=== PATIENT | female | born 1945 | race Caucasian/White ===

== ENCOUNTER 2019-05-07 16:41 | Outpatient (CLI) | payer MEDICARE, SELFPAY ==
--- NOTE | ~2019-05-07 | MM_ITS ---
EXAMINATION: MM screening luis f BI w richar HISTORY: Screening mammogram TECHNIQUE: Craniocaudal and mediolateral oblique 3-D tomosynthesis images were obtained and synthetic 2-D images were generated. CAD analysis was submitted and interpreted. COMPARISON: Comparison to multiple prior studies sequentially, with oldest reviewed study dated 09/26. BREAST PARENCHYMAL COMPOSITION: There are scattered areas of fibroglandular density. FINDINGS: There is no evidence of suspicious mass, calcification, or architectural distortion to sugg est malignancy in either breast. There has been no suspicious interval change. IMPRESSION: 1. No mammographic evidence of malignancy. 2. Recommend routine screening mammography in one year. BI-RADS Category 1: Negative Reviewed, dictated and finalized at location A. OILER
== END 2019-05-07 16:42 | disposition home or self-care (01) ==
LOC: ANHIMG 16:48
PROVIDERS: PCP Nurse Practitioner Family; Visit Provider Nurse Practitioner Family
DX: Z12.31 Encounter for screening mammogram for malignant neoplasm of breast (principal)
CPT/HCPCS: 77063; 77067

== ENCOUNTER 2019-09-03 11:03 | Outpatient (CLI) | payer MEDICARE, OTHER, SELFPAY ==
--- NOTE | ~2019-09-03 | US_ITS ---
EXAMINATION: US venous doppler [facility] DATE: 09/03/2019 11:34 INDICATION: Left lower limb injury TECHNIQUE: Grayscale ultrasound images without and with compression and Doppler ultrasound images of the left lower extremity veins were obtained. COMPARISON: None. FINDINGS: The visualized portions of left common femoral vein, profunda (deep) femoral vein, femoral vein, popl iteal vein, peroneal veins, posterior tibial veins, gastrocnemius vein and greater saphenous vein out flow are patent. IMPRESSION: 1. No deep venous thrombosis in the left lower limb. Reviewed, dictated and finalized at location A.
== END 2019-09-03 11:04 | disposition home or self-care (01) ==
PROVIDERS: PCP Nurse Practitioner Family; Visit Provider Nurse Practitioner Family
DX: S89.92XA Unspecified injury of left lower leg, initial encounter (principal); M79.89 Other specified soft tissue disorders
CPT/HCPCS: 93971

== ENCOUNTER 2020-09-24 09:02 | Outpatient (CLI) | payer MEDICARE, SELFPAY ==
--- NOTE | ~2020-09-24 | MM_ITS ---
EXAMINATION: MM screening [facility] BI w richar HISTORY: Screening mammogram, family history of breast cancer in her sister. TECHNIQUE: Craniocaudal and mediolateral oblique 3-D tomosynthesis images were obtained and synthetic 2-D images were generated. CAD analysis was submitted and interpreted. COMPARISON: 05/07/2019, 04/29/2018, 11/26/2015 BREAST PARENCHYMAL COMPOSITION: There are scattered areas of fibroglandular density. FINDINGS: There is no evidence of suspicious mass, calcification, or architectural distortion to sugg est malignancy in either breast. There has been no suspicious interval change. IMPRESSION: 1. No mammographic evidence of malignancy. 2. Recommend routine screening mammography in one year. BI-RADS Category 1: Negative Reviewed, dictated and finalized at location A.
== END 2020-09-24 09:03 | disposition home or self-care (01) ==
LOC: ANHIMG 09:05
PROVIDERS: PCP Nurse Practitioner Family; Visit Provider Nurse Practitioner Family
DX: Z12.31 Encounter for screening mammogram for malignant neoplasm of breast (principal)
CPT/HCPCS: 77063; 77067

== ENCOUNTER 2021-07-29 09:01 | Outpatient (CLI) | payer MEDICARE, SELFPAY ==
--- NOTE | ~2021-07-29 | DEXA_ITS ---
Bone Density Report Name: ACOSTA HOSKINS Age: 75 Sex: Female Ethnicity: White Date of : 1945 Indication: postmenopausal; screening for osteoporosis; height loss; hysterectomy; Referring Provider: SUNNY, BRANDON Goss Study: Bone densitometry was performed. Exam Date: July 29, 2021 Accession number: [id number] Bone Density: Region BMD T-score Z-score Classification AP Spine(L1, L2, L3) 1.024 0.1 2.5 Normal Femoral Neck (Left) 0.762 -0.8 1.4 Normal Total Hip (Left) 0.794 -1.2 0.7 Osteopenia Femoral Neck (Right) 0.672 -1.6 0.6 Osteopenia Total Hip (Right) 0.787 -1.3 0.6 Osteopenia Total Hip Mean 0.790 -1.3 0.7 Osteopenia World Health Organization criteria for BMD impression classify patients as: Normal (T-score at or above -1.0), Osteopenia (T-score between -1.0 and -2.5), or Osteoporosis (T-score at or below -2.5). 10-year Fracture Risk(1): Major Osteoporotic Fracture 12% Hip Fracture 2.5% Reported Risk Factors: [place] (), Neck BMD=0.672, BMI=29.5 (1) FRAX(R) Version 3.08. Fracture probability calculated for an untreated patient. Fracture probability may be lower if the patient has received treatment. Previous Exams: Region Exam Age BMD T-score BMD Change BMD Change Date g/cm2 vs Baseline vs Previous AP Spine (L1-L3) 07/29/2021 75 1.024 0.1 -0.022 (-2.1%) -0.022 (-2.1%) 04/19/2018 72 1.046 0.3 Total Hip(Left) 07/29/2021 75 0.794 -1.2 -0.061 (-7.2%) -0.061 (-7.2%) 04/19/2018 72 0.855 -0.7 Total Hip(Right) 07/29/2021 75 0.787 -1.3 -0.053 (-6.3%) -0.053 (-6.3%) 04/19/2018 72 0.840 -0.8 *Denotes significance at 95% confidence level, LSC for AP Spine = 0.022 g/cm2, LSC for Total Hip = 0.027 g/cm2 Clinical Information Provided by Patient: Has used the following medications: Vitamin D, Calcium Has the following medical conditions: Hysterectomy Patient maximum height was 62 Menopause Age: 49 Drinks caffeinated beverages Onset of menses at age 11 Number of children 2 Impression: The patient has low bone mass, based on the Right Femoral Neck T-score. The patient has an estimated ten-year risk of hip fracture of 2.5% and an estimated ten-year risk of major fracture of 12%, based on the WHO FRAX algorithm. The BMD for the Total Hip(Left) decreased, changing by -7.2% since the last DXA exam. The BMD for the Total Hip(Right) decreased, changing by -6.3% since the last DXA exam. Patito
== END 2021-07-29 09:02 | disposition home or self-care (01) ==
LOC: ANHIMG 09:03
PROVIDERS: PCP Nurse Practitioner Family; Visit Provider Nurse Practitioner Family
DX: Z78.0 Asymptomatic menopausal state (principal); M85.851 Other specified disorders of bone density and structure, right thigh; M85.852 Other specified disorders of bone density and structure, left thigh
CPT/HCPCS: 77080

== ENCOUNTER 2021-11-18 08:18 | Outpatient (CLI) | payer MEDICARE, SELFPAY ==
--- NOTE | ~2021-11-18 | XR_ITS ---
EXAMINATION: XR hip LT 2V w AP pelvis INDICATION: Left hip pain TECHNIQUE: AP view the pelvis and two views of the left hip are obtained. COMPARISON: None available FINDINGS: There is advanced osteoarthritis of the left hip and mild osteoarthritis of the right hip. There is no fracture. Phleboliths are noted in the pelvis. IMPRESSION: 1. Advanced osteoarthritis of the left hip. Reviewed, dictated and finalized at location B.
--- NOTE | ~2021-11-18 | MM_ITS ---
EXAMINATION: MM screening luis f BI w richar HISTORY: Screening mammogram TECHNIQUE: Craniocaudal and mediolateral oblique 3-D tomosynthesis images were obtained and synthetic 2-D images were generated. CAD analysis was submitted and interpreted. COMPARISON: 09/24/2020, 05/07/2019, 04/19/2018 bilateral screening mammogram examinations BREAST PARENCHYMAL COMPOSITION: There are scattered areas of fibroglandular density. FINDINGS: There is no evidence of suspicious mass, calcification, or architectural distortion to sugg est malignancy in either breast. There has been no suspicious interval change. IMPRESSION: 1. No mammographic evidence of malignancy. 2. Recommend routine screening mammography in one year. BI-RADS Category 1: Negative Reviewed, dictated and finalized at location A.
== END 2021-11-18 08:19 | disposition home or self-care (01) ==
PROVIDERS: PCP Nurse Practitioner Family; Visit Provider Nurse Practitioner Family
DX: Z12.31 Encounter for screening mammogram for malignant neoplasm of breast (principal); M16.12 Unilateral primary osteoarthritis, left hip
CPT/HCPCS: 73502; 77063; 77067

== ENCOUNTER 2022-03-02 09:37 | Outpatient (CLI) | payer MEDICARE, SELFPAY ==
--- NOTE | 2022-03-02 10:37 | ECG_ITS ---
Measurements Intervals [place] Rate: 76 P: 30 SC: 148 QRS: -18 QRSD: 98 T: 30 QT: 363 QTc: 408 Interpretive Statements SINUS RHYTHM WITH OCCASIONAL VENTRICULAR PREMATURE COMPLEXES INFERIOR MYOCARDIAL INFARCTION [40+ ms Q WAVE AND/OR ST/T ABNORMALITY IN II/aVF], PROBABLY OLD ANTEROLATERAL MYOCARDIAL INFARCTION [40+ ms Q WAVE IN I/aVL/V3-V6], PROBABLY OLD ABNORMAL ECG NO PREVIOUS ECG AVAILABLE FOR COMPARISON Electronically Signed On 03-02-2022 13:42:06 [employer] SUPERVIS[employer] by Dread Cheney M.D.
[2022-03-02 11:20] LABS: Basophils Percent Auto 0.6 % (0.2-1.2); Hematocrit 40.2 % (37.0-47.0); Hemoglobin 12.7 g/dL (12.0-15.0); Immature Granulocyte Absolute 0.01 K/mm3 (0.00-0.031); Immature Granulocyte Percent A 0.2 % (0-0.5); Lymphocytes Absolute Auto 1.61 K/mm3 (0.9-3.2); Lymphocytes Percent Auto 31.9 % (18.3-44.2); Mean Corpuscular HGB Conc 31.6 g/dl (32-36); Mean Corpuscular Hemoglobin 29.8 pg (26-34); Mean Corpuscular Volume 94.4 fl (80-100); Mean Platelet Volume 10.5 fl (7.4-10.4); Monocytes Absolute Auto 0.5 K/mm3 (0.1-0.6); Monocytes Percent Auto 9.1 % (2.6-8.5); Neutrophils Absolute Auto 2.9 K/mm3 (1.3-6.7); Neutrophils Percent Auto 58.2 % (45.5-73.1); Platelet Count Result 220 k/mm3 (150-375); Red Blood Count 4.26 M/mm3 (4.2-5.4); Red Cell Distribution Width 13.9 % (11.5-14.5); White Blood Count 5.1 K/mm3 (4.5-10.0)
[2022-03-02 11:24] LABS: Albumin Level 4.2 g/dL (3.5-5.1); Anion Gap 5 mmol/L (8-16); Blood Urea Nitrogen 19 mg/dL (7-17); Calcium 9.1 mg/dL (8.4-10.2); Carbon Dioxide 34 mmol/L (22-30); Chloride 100 mmol/L (98-107); Estimated Glomerular Filt Rate > 60; Glucose 101 mg/dL (65-110); Potassium 3.6 mmol/L (3.4-5.0); Sodium 139 mmol/L (137-145)
[2022-03-02 11:27] LABS: Urine Cotinine NEGATIVE
[2022-03-02 13:18] LABS: Hemoglobin A1C 5.5 % (<5.7)
== END 2022-03-02 09:38 | disposition home or self-care (01) ==
PROVIDERS: PCP Nurse Practitioner Family; Visit Provider Orthopaedic Surgery
DX: Z01.812 Encounter for preprocedural laboratory examination (principal); Z01.810 Encounter for preprocedural cardiovascular examination; M16.12 Unilateral primary osteoarthritis, left hip; R94.31 Abnormal electrocardiogram [ECG] [EKG]
CPT/HCPCS: 80048; 80307; 82040; 83036; 85025; 87081; 87147; 87181; 87186; 93005

== ENCOUNTER 2022-03-20 00:21 | Day surgery (SDC) | payer MEDICARE, SELFPAY ==
[2022-03-02 09:49] VITALS: BMI 29.9
--- NOTE | 2022-03-02 10:17 | PC.NURSE ---
Report to the Outpatient Waiting Room, entrance under the green pavilion located off [facility], at time __0600 on date __03/20/2022____. Planned Procedure Time: _0730 . Time changes happen often and if your time is changed the preop area will call you the afternoon before. - You and your visitor will be asked to self-screen and do not enter if you have any COVID symptoms. - Only one visitor is requested with a max of two and NO children visitors are allowed at this time. - The patient visitor may be requested to leave or wait in car when not with patient due to distancing restrictions. - A mask is optional within the hospital. Patients may have clear liquids (water, carbonated beverages, clear teas, apple juice) until 3 hours prior to surgery with a maximum of 20 ounces. - No food from midnight until time of surgery - Infants may have breast milk until 4 hours before surgery, formula 6 hours prior to surgery. - Children will be allowed to drink immediately following surgery. If applicable, please bring a bottle or sippy cup to assist with drinking. Juice, water, soda, and popsicles are readily available. For infants on formula, please bring formula the day of surgery. Pacifiers are allowed. Take the following medications with a SIP of water the morning of surgery: ____NONE Medications to discontinue per physician ___PT STATES PER DR DE LA CRUZ NAPROXEN HOLD 2 WKS PRE OP. LAST DOSE 03/05/22. ALL VITAMINS AND SUPPLEMENTS 3 DAYS PRE OP LAST DOSE 03/16/22 Please no make-up, nail danish, hairspray, perfume, deodorant, or body powder the day of surgery. No jewelry (including any body piercings) or valuables the day of surgery, leave them at home. Please take a shower or bath the night before, or the morning of, surgery with an antibacterial soap. Wear comfortable, loose fitting clothing. Children are encouraged to wear pajamas. - Jewelry must be removed prior to entering the operating room. Rings and piercings that are not removed may be cut off. - The hospital will not accept responsibility for valuables. - Please leave all valuables, including medications, at home the day of surgery. If you are going home after surgery, a licensed day haul or farm charter bus driver must drive you home. - NO public transportation without another adult if you receive anesthesia. - We recommend that an adult stay with you for 24 hours following discharge. - We also recommend that you do not drive, make important decision, drink alcoholic beverages, or take any drugs that were not prescribed by your health care provider for at least 24 hours after your discharge time. For Pediatric surgeries, we recommend two adults accompany the child home. Follow any additional instructions given to you from your surgeon. If you or anyone in your household have experienced Covid symptoms in the past week, please notify your surgeon or the nurse liaison at the phone number below for possible testing. VERBAL AND WRITTEN instructions given to __PATIENT and asked if any additional questions and then verbalized understanding. Patient advised to call surgeon office or pre surgery nurse liaison [phone] if any additional questions.
[2022-03-02 10:36] VITALS: BP 151/70; PULSE 78; RESP 18; TEMP 37.3; O2SAT 97
--- NOTE | 2022-03-17 08:15 | PM.IMHP ---
H&P: HPI History of Present Illness Date/Time: 03/17/22 08:15 Chief Complaint: DJD left hip Narrative: 76-year-old female patient of Dr. Rg who presents today for a left anterior total hip arthroplasty. Patient has been having symptoms for over a year in the left hip. She has been using a cane for last year due to pain. She has been taking naproxen 500 mg twice daily with minimal improvement of her symptoms. She is having pain in the anterior lateral left hip as well as the groin. X-rays do show patient has severe type 1 osteoarthritis in the hip. Patient feels this point she is ready to proceed with total hip arthroplasty rather continuing nonsurgical treatment Review of Systems Review of Systems: All systems reviewed & are unremarkable except as noted in HPI and below PMFSH Past Medical History Medical History HTN (hypertension) Pes planus of both feet Tonsillectomy planned Traumatic arthritis of right ankle Surgical History Surgical History History of ankle surgery History of breast surgery History of carpal tunnel release Family History Family History Other Diabetes mellitus Family history of alcoholism Family history of arthritis Family history of cardiovascular disease Family history of gout Family history of kidney disease Hypertension Social History Social History Smoking status: Never smoker Additional smoking assessment comments: DENIES ANY FORM OF TOBACCO USE Alcohol intake: current Substance use: unknown Gender identity (if verbalized by the patient): Female Spiritual care concerns: No Meds Home Medications and Allergies Home Medications Medication Instructions Recorded Confirmed Type herbal drugs 1 tablet PO DAILY 12/10/19 03/02/22 History multivitamin 1 tablet PO DAILY 12/10/19 03/02/22 History naproxen sodium 220 mg tablet 500 mg PO Q8H PRN Pain 12/10/19 03/02/22 History (Aleve) acetaminophen 500 mg capsule 500 mg PO Q6H PRN Pain 03/02/22 03/02/22 History cholecalciferol (vitamin D3) 125 125 mcg PO DAILY 03/02/22 03/02/22 History mcg (5,000 unit) tablet cokzmuxoszu-qbj-ngrrqolac-vitC 2 cap PO DAILY 03/02/22 03/02/22 History capsule (Glucosamine Complex-MSM capsule) milk thistle 200 mg capsule 200 mg PO DAILY 03/02/22 03/02/22 History pyridoxine (vitamin B6) 50 mg 50 mg PO DAILY 03/02/22 03/02/22 History tablet triamterene 37.5 1 cap PO DAILY 03/02/22 03/02/22 History mg-hydrochlorothiazide 25 mg capsule Allergies Allergy/AdvReac Type Severity Reaction Status Date / Time No Known Allergies Allergy Verified 03/02/22 09:50 Exam Narrative: 76-year-old female alert pleasant. She is 4 ft 11 and 152 lb, her BMI is 30.7. Her left hip range of motion is from 0-90 degrees, and 90? this causes her severe lateral hip pain internal rotation is 0 external rotation to 20 both again with anterior lateral hip pain. She has normal abduction strength in the lateral position. Mild tenderness over the greater trochanter. 2+ dorsalis pedis and posterior artery pulse palpable. Normal sensation. No edema in lower extremities. Skin around the hip and groin crease are all normal Resp: Auscultation: clear to auscultation bilaterally Cardio: Rate: regular rate Rhythm: regular rhythm Assessment and Plan Assessment and plan (1) Hip arthritis: Code(s): M16.10 - Unilateral primary osteoarthritis, unspecified hip Status: Acute Plan 76-year-old female who has severe osteoarthritis of left hip with significant symptoms on a daily basis. Again patient feels she is ready to proceed with total arthroplasty. Surgical procedure as well as the risks and complications were discussed in detail and all questions are answered an
--- NOTE | 2022-03-17 12:10 | WPDANESEPPF ---
Anes - Initial Pre Proc Eval Procedure: Operation Date: 03/20/22 07:30 Proposed Procedures p Left Total Hip Arthroplasty Anterior Approach - Osmin Whitfield MD Date/Time: 03/17/22 12:10 Surgeon: Osmin Whitfield MD Pre Op Diagnosis: oa left hip Patient Data Age: 76 Gender: F Height: 1.52 m Weight: 69.6 kg Last Vital Signs Temp 99.1 F 03/02/22 10:36 Pulse 78 03/02/22 10:36 Resp 18 03/02/22 10:36 BP 151/70 H 03/02/22 10:36 Pulse Ox 97 03/02/22 10:36 O2 Del Method Room Air 03/02/22 10:36 Allergies Allergy/AdvReac Type Severity Reaction Status Date / Time No Known Allergies Allergy Verified 03/20/22 06:38 Home Medications Medication Instructions Recorded Confirmed Type herbal drugs 1 tablet PO DAILY 12/10/19 03/20/22 History multivitamin 1 tablet PO DAILY 12/10/19 03/20/22 History naproxen sodium 220 mg tablet 500 mg PO Q8H PRN Pain 12/10/19 03/20/22 History (Aleve) acetaminophen 500 mg capsule 500 mg PO Q6H PRN Pain 03/02/22 03/20/22 History cholecalciferol (vitamin D3) 125 125 mcg PO DAILY 03/02/22 03/20/22 History mcg (5,000 unit) tablet idusintqntj-qsj-rfxwlidyb-vitC 2 cap PO DAILY 03/02/22 03/20/22 History capsule (Glucosamine Complex-MSM capsule) milk thistle 200 mg capsule 200 mg PO DAILY 03/02/22 03/20/22 History pyridoxine (vitamin B6) 50 mg 50 mg PO DAILY 03/02/22 03/20/22 History tablet triamterene 37.5 1 cap PO DAILY 03/02/22 03/20/22 History mg-hydrochlorothiazide 25 mg capsule Patient hx anesthesia problems: none Family hx anesthesia problems: none Results Review: All pre-operative results and documents have been reviewed as part of the pre-operative evaluation. [facility] Past Medical History Medical History HTN (hypertension) Pes planus of both feet Tonsillectomy planned Traumatic arthritis of right ankle Surgical History Surgical History History of ankle surgery History of breast surgery History of carpal tunnel release Family History Family History Other Diabetes mellitus Family history of alcoholism Family history of arthritis Family history of cardiovascular disease Family history of gout Family history of kidney disease Hypertension Social History Social History Smoking status: Never smoker Additional smoking assessment comments: DENIES ANY FORM OF TOBACCO USE Alcohol intake: current Substance use: unknown Living arrangements: alone Gender identity (if verbalized by the patient): Female Spiritual care concerns: No Anes - Eval Final PreProcedure Day of Procedure 03/17/22 12:10 Patient weight: normal Heart: regular rate and rhythm Lungs: clear to auscultation Airway: Mallampati scale class II Neurological: alert and oriented Last oral intake: >/= 8 hours ASA classification: II Emergent: no Anesthetic plan: proceed Anesthesia type and monitoring: general ETT and standard monitoring Results Review: All pre-operative results and documents have been reviewed as part of the pre-operative evaluation. Informed Consent: The patient's anesthetic plan and its attendant risks and benefits were discussed with the patient/family/POA. Questions were solicited and answers provided to the satisfaction of the patient/family/POA.
[2022-03-20] VITALS (15 sets, daily range): BP systolic 95–154; BP diastolic 39–80; PULSE 70–101; RESP 12–20; TEMP 36.6–37.2; O2SAT 95–100; BMI 29.4
--- NOTE | ~2022-03-20 | XR_ITS ---
EXAMINATION: XR hip LT 1V w AP pelvis DATE: 03/20/2022 11:29 INDICATION: Left total hip arthroplasty. Postop. TECHNIQUE: An anteroposterior view of the pelvis and single view of left hip were obtained. COMPARISON: Pelvis and left hip radiographs 11/18/2021 FINDINGS: There is a total left hip arthroplasty in near-anatomic alignment. There is mild right hip osteoarthritis. No fracture. There is gas in the soft tissues around the left hip, consistent with re cent surgery. A surgical drain is noted. IMPRESSION: 1. Total left hip arthroplasty in near-anatomic alignment. 2. Mild right hip osteoarthritis. Reviewed, dictated and finalized at location A. S VICE PRESIDENT
--- NOTE | ~2022-03-20 | XR_ITS ---
EXAMINATION: XR surgery orthopedic DATE: 03/20/2022 11:08 INDICATION: Anterior approach left total hip arthroplasty TECHNIQUE: 2 fluoroscopic images of the left hip were obtained during procedure performed by Dr. Terry veloz. Radiologist was not present for the imaging or procedure. The amount of fluoroscopy time used du ring this procedure was 0.9 minutes. COMPARISON: 11/18/2021 FINDINGS: Interval placement of a left total hip arthroplasty which appears in near anatomic alignment on the f rontal projection. No fractures identified. Expected postoperative soft tissue gas at the operative b ed. Multiple phleboliths in the pelvis. A lead versus catheter projects of the left hemipelvis. IMPRESSION: Fluoroscopy utilized during placement of a left total hip arthroplasty which appears in near-anatomic alignment on AP projection. See procedure note for further detail. Reviewed, dictated and finalized at location A. TIC COUNSELOR IMPRESSION: Fluoroscopy utilized during placement of a left total hip arthroplasty which ap pears in near-anatomic alignment on AP projection. See procedure note for furth er detail.
[2022-03-20] MEDS: LACTATED RINGERS 1,000 ML 30 ML IV CONT ×2 (06:46→11:31)
[2022-03-20] MEDS: TRANEXAMIC ACID 1,000MG/ISO100 1,000 MG/100 ML BAG 200 MG IVPB (06:47)
[2022-03-20] MEDS: ACETAMINOPHEN 500 MG TABLET 1000 MG PO ×3 (06:47→17:04)
--- NOTE | 2022-03-20 07:23 | WPDHPUPDATE1 ---
History and Physical Update Update Date/Time: 03/20/22 07:23 History and Physical has been reviewed, including an updated exam of the patient. There are NO changes in the patient's condition. Risks, benefits, and alternatives have been discussed and questions answered. Patient agrees to proceed with procedure.
[2022-03-20] MEDS: ceFAZolin 2 GM/D5W 50 ML 2 GM/50 ML BAG IVPB (07:40)
[2022-03-20] MEDS: ceFAZolin SODIUM 1 GM VIAL 3 GM (08:25)
[2022-03-20] MEDS: TRANEXAMIC ACID 1,000 MG/10 ML AMPUL 1000 MG IV PUSH (10:53)
[2022-03-20] MEDS: ceFAZolin SODIUM 1 GM VIAL 2 GM IV PUSH (10:53)
--- NOTE | 2022-03-20 11:16 | W.PM.PROC2 ---
Procedure Note - Detailed Date of Procedure 03/20/22 Pre-op Diagnosis oa left hip Post-op Diagnosis Same Procedure Performed Direct anterior approach left total hip arthroplasty Surgeon Osmin Whitfield MD Continuous Improvement Intern Navya Anesthesia General Description of Procedure Patient was brought to the operating room and general anesthesia was administered. She received 2 g Ancef weight based vancomycin 1 g of tranexamic acid preoperatively. Padding was placed on the feet and boots applied with SCDs applied running during the procedure [facility] and left hip prepped draped usual fashion. A 10 cm longitudinal incision was made starting 3 cm lateral to the ASIS. Dissection was carried down through the subcutaneous fat exposing the fascia over the tensor fascia matt. There was 1 posterior branch of anterior lateral femoral circumflex nerve that traverse the proximal end of the incision to the posterior flap that we preserved during the procedure. Fascia was incised elevated off the anterior 50% of the tensor fascia matt. The lateral femoral circumflex vessels were carefully isolated ligated with suture divided. Retractor was placed anterior medial capsule hip abducted internally rotated gluteus minimus elevated off lateral capsule. Standard inverted T capsulotomy performed and femoral neck osteotomy made according to preoperative templating. The femoral head was removed. It measured 42 mm in diameter. There was circumferential bony eburnation which made the head smaller than in its normal state. The acetabulum was exposed labrum excised. The leg was externally rotated extended and the interval between piriformis and conjoined tendon incised which resulted in a minimal recession of the conjoined tendon. The leg back in horizontal position external rotation traction acetabulum was prepared. We medialized the medial wall with the 40 Reamer and reamed up to 45 mm in the 45 trial fit nicely. We lightly reamed with a 46 and chose the 46 pinnacle cup and tried to seat this fully but I could not get it to seat the last 3 mm which I do not feel was acceptable. Cup was removed and we carefully irrigated the cup and removed any soft tissue debris and we then reamed the acetabulum 1 more time carefully and conservatively with a 46 Reamer and this time we were able to fully seat the acetabular component. An excellent Press-Fit was achieved single screw placed in the ilium. Cup placed at 40? of abduction and anteversion such that the cup was a mm under the anterior rim and about a mm proud of the posterior rim. 28 mm inner diameter liner was placed. With the femoral table hook in place the leg was externally rotated and extended and the proximal femur broached to a size 3 which obtain complete torsional stability. We trialed with the 1.5 had. At this point I felt we had the proper length based on radiographic appearance offset was a little bit diminished. I elected to countersink the broach 2 and half more mm and we trialed with a +5 head and with this we similarly had the same leg lengths offset was 3 mm greater and approximately equal to the other side we had a better Shuck feel. We confirmed that there was complete torsional stability of the broach. We calcar planed and placed the size 3 standard offset Actis stem which seated fully with an excellent fit. We trialed 1 more time with a +5 head was appropriate. The wound was thoroughly irrigated and the trunnion dried and the +5 x 28 mm stainless steel head was impacted onto the trunnion hip reduced stability soft tissue tension were appropriate. Capsule was reapproximated with 2. Vicryl the fascia over the tensor fascia matt repaired with running 1. Vicryl a drain was placed deep in the subcu skin closed to subcutaneous Vicryl and glue. EBL was estimated at 500 cc. Her bones tended to ooze more than average. With the implants in place there was complete hemostasis. She received 250 back a
--- NOTE | 2022-03-20 11:35 | P.OPB_ITS ---
Procedure Note - Brief Procedure Note - Brief Date of procedure: 03/20/22 Pre-op diagnosis: oa left hip Left hip DJD Procedure performed: Left anterior total hip arthroplasty Description of procedure: 76-year-old female underwent left anterior total hip arthroplasty. I was involved in the procedure including positioning patient on OR table, 1st surgical physician assistant to time surgery as well as getting patient recovery. Total time spent was 4 hours Surgeon: NASIM Edmonds
[2022-03-20 13:13] LABS: Hepatitis B Surface Antigen Negative (Negative)
--- NOTE | 2022-03-20 13:23 | ADMGEN ---
This patient, Lulú Olson, was admitted to [facility]. Patient/family oriented to hospital policies and general routines including ID bracelet, bed and alarms, visiting hours, pain management, procedures, bathroom and other care routines, personal items, smoking policy, room service/diet, and visiting hours. Information on how to activate the Rapid Response Team has been discussed. Patient/Family are encouraged to report perceived risks to care and to ask questions if they do not understand what they are told or what they should do.
[2022-03-20 13:30] LABS: HIV 1/2 Ab P24 Ag Result Negative (Negative); Hepatitis C Virus Antibody Negative (Negative)
[2022-03-20] MEDS: SODIUM CHLORIDE 0.9% IV 1,000 ML 125 ML IV CONT (14:13)
[2022-03-20] MEDS: oxyCODONE HCL (*CRX) 5 MG TAB IR PO ×3 (14:16→20:50)
[2022-03-20] MEDS: ONDANSETRON INJ 4 MG/2 ML VIAL IV PUSH ×2 (15:41→20:53)
[2022-03-20] MEDS: SENNA/DOCUSATE SODIUM TABLET 2 TAB PO (16:49)
[2022-03-20] MEDS: FAMOTIDINE 20 MG TABLET PO (20:50)
[2022-03-20] MEDS: SODIUM CHLORIDE 0.9% IV 1,000 ML 999 ML IV CONT (21:00)
[2022-03-21] MEDS: ACETAMINOPHEN 500 MG TABLET 1000 MG PO ×2 (00:15→05:06)
[2022-03-21] MEDS: oxyCODONE HCL (*CRX) 5 MG TAB IR PO ×3 (01:00→08:41)
[2022-03-21 05:12] VITALS: BP 126/48; PULSE 77; RESP 20; TEMP 37.3; O2SAT 100
--- NOTE | 2022-03-21 06:35 | PM.PNORT ---
Subjective Subjective Date/Time Seen: 03/21/22 06:35Postop day 1 patient is alert. Afebrile vital signs are stable. Morning labs and not been completed yet. Drain is still in will be removed this morning. Patient has been on multiple times to the restroom overnight. Pain overall is very well controlled. Neurovascularly she is intact. Will have patient work with therapy this morning then plan on discharging her home later this morning. Objective Data Vital Signs Vital Signs: Vital Signs - 24 hr 03/20/22 06:52 03/20/22 11:31 03/20/22 11:45 Temperature 37.0 C 36.6 C Pulse Rate 71 96 82 Respiratory Rate 18 14 12 Blood Pressure 154/71 H 111/53 L 100/45 L Pulse Oximetry 99 99 99 Oxygen Delivery Room Air Room Air Simple Face Mask Oxygen Flow Rate 8 03/20/22 12:00 03/20/22 12:15 03/20/22 12:30 Temperature Pulse Rate 94 85 101 H Respiratory Rate 14 12 14 Blood Pressure 126/61 137/71 153/78 H Pulse Oximetry 95 100 99 Oxygen Delivery Simple Face Mask Room Air Nasal Cannula Oxygen Flow Rate 8 2 03/20/22 12:45 03/20/22 13:00 03/20/22 13:08 Temperature 36.9 C Pulse Rate 84 79 78 Respiratory Rate 14 14 16 Blood Pressure 144/63 H 142/68 H 140/61 Pulse Oximetry 100 100 100 Oxygen Delivery Nasal Cannula Nasal Cannula Oxygen Flow Rate 2 2 03/20/22 13:23 03/20/22 14:19 03/20/22 14:00 Temperature 36.9 C 36.8 C 36.8 C Pulse Rate 78 81 81 Respiratory Rate 16 16 16 Blood Pressure 140/61 129/57 L 129/57 L Pulse Oximetry 100 100 100 Oxygen Delivery Oxygen Flow Rate 03/20/22 16:30 03/20/22 17:48 03/20/22 19:26 Temperature 36.8 C 36.7 C Pulse Rate 70 80 Respiratory Rate 18 18 Blood Pressure 130/80 95/39 L Pulse Oximetry 97 100 Oxygen Delivery Room Air Oxygen Flow Rate 03/20/22 21:17 03/21/22 05:12 Temperature 37.2 C 37.3 C Pulse Rate 78 77 Respiratory Rate 20 20 Blood Pressure 108/39 L 126/48 L Pulse Oximetry 98 100 Oxygen Delivery Oxygen Flow Rate Intake/Output Intake/Output: Intake & Output 03/18/22 03/19/22 03/20/22 03/21/22 23:59 23:59 23:59 23:59 Intake Total 3900 450 Output Total 45 45 Balance 3855 405 Meds/Results Medications: Active Medications Generic Name Dose Route Start Last Admin Trade Name Freq PRN Reason Stop Dose Admin Acetaminophen 1,000 mg 03/20/22 13:08 03/21/22 05:06 Acetaminophen 500 Mg Tablet PO 1,000 mg Q6HR SATINDER Administration Apixaban 2.5 mg 03/21/22 09:00 Apixaban 2.5 Mg Tablet PO Q12HR SATINDER Celecoxib 100 mg 03/21/22 09:00 Celecoxib 100 Mg Capsule PO DAILY SATINDER Cephalexin HCl 500 mg 03/21/22 18:00 Cephalexin 500 Mg Capsule PO Q6HR SATINDER Famotidine 20 mg 03/20/22 21:00 03/20/22 20:50 Famotidine 20 Mg Tablet PO 20 mg Q12HR SATINDER Administration Vancomycin HCl 1,000 mg in 250 mls @ 250 mls/hr 03/20/22 18:00 03/21/22 06:07 Vancomycin 1,000 Mg/D5w 250 Ml IVPB 03/21/22 06:59 Infused Q12H SATINDER Infusion Cefazolin Sodium 1 gm in 50 mls @ 100 mls/hr 03/20/22 19:00 03/21/22 04:35 Ancef 1 Gm/D5w 50 Ml Pm IVPB 03/21/22 11:29 Infused Q8H SATINDER Infusion Sodium Chloride 1,000 mls @ 125 mls/hr 03/20/22 13:08 03/20/22 22:20 Normal Saline Iv IV CONT Not Given .Q8H SATINDER Morphine Sulfate 2 mg 03/20/22 13:08 Morphine Sulfate (*Crx) 2 Mg/Ml Inj IV PUSH Q3H PRN Pain Rated 7-10 Naloxone HCl 0.1 mg 03/20/22 13:08 Naloxone Hcl 0.4 Mg/Ml Vial IV PUSH Q2M PRN Opiate Reversal Ondansetron HCl 4 mg 03/20/22 13:08 03/20/22 20:53 Ondansetron Inj 4 Mg/2 Ml Vial IV PUSH 4 mg Q4H PRN Administration Nausea And Vomiting Oxycodone HCl 5 mg 03/20/22 13:08 Oxycodone Hcl (*Crx) 5 Mg Tab Ir PO Q4H PRN Pain Rated 4-6 Oxycodone HCl 5 mg 03/20/22 13:08 03/21/22 05:06 Oxycodone Hcl (*Crx) 5 Mg Tab Ir PO 5 mg Q4HR SATINDER Administration Polyethylene Glycol 17 gm 03/21/22 09:00 Polyethylene Glycol 335
--- NOTE | 2022-03-21 06:39 | PM.DS ---
DS: Admitting Diagnosis Discharge Date 03/21 Admitting Diagnosis left hip DJD DS: Discharge Diagnosis Discharge Diagnosis (1) Hip arthritis: Code(s): M16.10 - Unilateral primary osteoarthritis, unspecified hip Status: Acute DS: Summary Hospital Course Hospital Course: 76-year-old female who underwent left anterior total hip arthroplasty on 03/20. Underwent the procedure without complications. Postoperatively she has been afebrile vital signs been stable. Neurovascularly she is intact. Her is dry. She was up multiple times a day of surgery to the restroom. She is on Eliquis for DVT prophylaxis. Pain is controlled with scheduled Tylenol as well as oxycodone 5 mg. She is on 10 day course of Celebrex. She is also on a 2 week course of Keflex due to a positive nasal swab for ARIK. She also go home on Senokot MiraLax. Patient overall has done very well. At the time of dictation morning labs not been completed. Patient was advised any questions or concerns once he goes home she is to call the office otherwise we will see her at her point dates Time Spent with Patient Time attestation: Total time spent providing and/or coordinating discharge services: DS: Data Data Completed and Pending Labs on day of discharge: Labs from last 24 hours 03/20/22 03/20/22 12:18 06:35 Hep Bs Antigen Negative Hepatitis C Ab Screen Negative HIV 1&2 Ab/P24 Ag 4thGn Negative Blood Type O Positive Antibody Screen Negative Discharge Plan Discharge Patient Disposition: Home, Self-Care Discharge Instructions: OSMIN WHITFIELD M.D [facility], [address] [address] POST-OPERATIVE DISCHARGE INSTRUCTIONS ANTERIOR TOTAL HIP ARTHROPLASTY 1. Move toes/feet up and down every hour while awake. 2. Be up walking every hour while awake. 3. Use cane in hand opposite of side of hip surgery or walker as comfort allows. Avoid sitting in a chair unless eating, receiving visitors or using the toilet. 4. When resting, lie on back with leg elevated above heart to minimize swelling. Significant swelling could indicate a blood clot and if this occurs, call the office (or go to the ER) to have a venous ultrasound performed. 5. Wound Care: Keep dry sponge on wound for 2 weeks. Use minimal tape. 6. Follow weight bearing status as instructed. 7. May shower with dressing off. Stand Alone Forms: General Discharge Instructions Follow-up/Referrals: Osmin Whitfield MD [Physician] - Keep Reg. Scheduled Appt. Discharge Medications: New acetaminophen 500 mg Tablet 1,000 mg PO Q6HR Qty: 90 0RF Eliquis 2.5 mg Tablet 2.5 mg PO Q12HR Qty: 70 0RF sennosides-docusate sodium [Senokot-S] 8.6-50 mg Tablet 2 tab-cap PO BID Qty: 60 0RF cephalexin 500 mg Capsule 500 mg PO Q6HR Qty: 56 0RF celecoxib [Celebrex] 100 mg Capsule 100 mg PO DAILY Qty: 10 0RF polyethylene glycol 3350 [Miralax] 17 gram Powder In Packet 17 g PO QAM Qty: 30 0RF oxycodone 5 mg Tablet 5 mg PO Q4HR Qty: 40 0RF Continued multivitamin Tablet 1 tablet PO DAILY herbal drugs Tablet 1 tablet PO DAILY triamterene-hydrochlorothiazid 37.5-25 mg capsule 1 cap PO DAILY pyridoxine (vitamin B6) 50 mg Tablet 50 mg PO DAILY milk thistle 200 mg Capsule 200 mg PO DAILY Rx Instructions: give with meal/snack cholecalciferol (vitamin D3) 125 mcg (5,000 unit) Tablet 125 mcg PO DAILY Discontinued naproxen sodium [Aleve] 220 mg tablet 500 mg PO Q8H PRN (Reason: Pain) Glucosamine Complex-MSM Capsule 2 cap PO DAILY acetaminophen [Tylenol Extra Strength] 500 mg Capsule 500 mg PO Q6H PRN (Reason: Pain) Attending physician on admission: Osmin Whitfield
--- NOTE | 2022-03-21 07:29 | WPDANESPN ---
Anes - Prog Note Post-Op Date/Time: 03/21/22 07:29 Cardiovascular status: normal Respiratory status: normal Airway patency: baseline Mental status: baseline Post-Op hydration status: normal Vital Signs: Last Vital Signs Temp 99.2 F 03/21/22 05:12 Pulse 77 03/21/22 05:12 Resp 20 03/21/22 05:12 BP 126/48 L 03/21/22 05:12 Pulse Ox 100 03/21/22 05:12 O2 Del Method Room Air 03/20/22 16:30 O2 Flow Rate 2 03/20/22 13:00 Pain Score (VAS): 2 I/O: Intake & Output 03/20/22 03/20/22 03/21/22 15:59 23:59 07:59 Intake Total 450 3450 450 Output Total 45 45 Balance 450 3405 405 03/20/22 03/20/22 06:35 12:18 Hep Bs Antigen Negative Hepatitis C Ab Screen Negative HIV 1&2 Ab/P24 Ag 4thGn Negative Antibody Screen Negative Patient Feedback: Patient satisfied with anesthetic care.
--- NOTE | 2022-03-21 08:27 | PCOTNOTE ---
Attempted to see pt for Occupational therapy treatment. Pt is currently eating breakfast and would like to finish it before it goes cold. Pt was educated on the purpose of seeing occupational therapy to ensure LUCILA is maintained during ADLs. Pt reports that she is d/c home today, has ordered a automotive engineering technician for home, and feels comfortable completing LE dressing with long handled equipment and toileting due to education from previous session and frequently using the bathroom during the night with staff. Will attempt at a later time for Occupational therapy session.
[2022-03-21 08:30] VITALS: BP 108/49; PULSE 70; RESP 20; TEMP 37.1; O2SAT 96
[2022-03-21] MEDS: polyethylene glycoL 3350 17 GM POWD.PACK PO (08:36)
[2022-03-21] MEDS: CELECOXIB 100 MG CAPSULE PO (08:37)
[2022-03-21] MEDS: CHOLECALCIFEROL 1,000 UNITS TABLET 5000 UNITS PO (08:38)
[2022-03-21] MEDS: TRIAMTERENE 37.5 MG/HCTZ 25 MG (MAXZIDE) TABLET 1 TAB PO (08:38)
[2022-03-21] MEDS: FAMOTIDINE 20 MG TABLET PO (08:39)
[2022-03-21] MEDS: APIXABAN 2.5 MG TABLET PO (08:39)
[2022-03-21] MEDS: SENNA/DOCUSATE SODIUM TABLET 2 TAB PO (08:40)
[2022-03-21 08:54] LABS: Basophils Percent Auto 0.1 % (0.2-1.2); Hematocrit 33.7 % (37.0-47.0); Hemoglobin 10.6 g/dL (12.0-15.0); Immature Granulocyte Absolute 0.04 K/mm3 (0.00-0.031); Immature Granulocyte Percent A 0.4 % (0-0.5); Lymphocytes Absolute Auto 2.98 K/mm3 (0.9-3.2); Lymphocytes Percent Auto 28.3 % (18.3-44.2); Mean Corpuscular HGB Conc 31.5 g/dl (32-36); Mean Corpuscular Hemoglobin 30.5 pg (26-34); Mean Corpuscular Volume 96.8 fl (80-100); Mean Platelet Volume 10.3 fl (7.4-10.4); Monocytes Absolute Auto 0.9 K/mm3 (0.1-0.6); Monocytes Percent Auto 8.1 % (2.6-8.5); Neutrophils Absolute Auto 6.7 K/mm3 (1.3-6.7); Neutrophils Percent Auto 63.1 % (45.5-73.1); Platelet Count Result 203 k/mm3 (150-375); Red Blood Count 3.48 M/mm3 (4.2-5.4); Red Cell Distribution Width 14.5 % (11.5-14.5); White Blood Count 10.5 K/mm3 (4.5-10.0)
[2022-03-21 09:02] LABS: Anion Gap 2 mmol/L (8-16); Blood Urea Nitrogen 17 mg/dL (7-17); Calcium 8.5 mg/dL (8.4-10.2); Carbon Dioxide 31 mmol/L (22-30); Chloride 102 mmol/L (98-107); Estimated CRCL calculation 44 ml/min; Estimated Glomerular Filt Rate > 60; Glucose 91 mg/dL (65-110); Potassium 3.4 mmol/L (3.4-5.0); Sodium 135 mmol/L (137-145)
== END 2022-03-21 11:05 | disposition home or self-care (01) ==
LOC: ANHSURGERY 11:59 → ANHSUROVER 13:15
PROVIDERS: Physician Assistant Surgical; PCP Nurse Practitioner Family; Visit Provider Orthopaedic Surgery
PROC: (CPT 27130; principal; 2022-03-20 07:30)
DX: M16.12 Unilateral primary osteoarthritis, left hip (principal); I10 Essential (primary) hypertension; Z11.4 Encounter for screening for human immunodeficiency virus [HIV]
CPT/HCPCS: 27130; 36415; 73501; 80048; 80307; 82040; 83036; 85025; 86703; 86803; 86850; 86900; 86901; 87081; 87147; 87181; 87186; 87340; 93005; 97110; 97116; 97161; 97165; 97530; 97535; 99199; A9270; C1776; G0432; J0171; J0690; J1100; J1170; J1885; J2270; J2405; J2704; J2710; J2795; J3010; J3370; J7030; J7120

== ENCOUNTER 2023-09-28 09:40 | Outpatient (CLI) | payer MEDICARE, SELFPAY ==
--- NOTE | ~2023-09-28 | MM_ITS ---
EXAMINATION: MM screening luis f BI w richar HISTORY: Screening TECHNIQUE: Craniocaudal and mediolateral oblique 3-D tomosynthesis images were obtained and synthetic 2-D images were generated. CAD analysis was submitted and interpreted. COMPARISON: Comparison to multiple prior studies sequentially, with oldest reviewed study dated 11/25. BREAST PARENCHYMAL COMPOSITION: Not dense: There are scattered areas of fibroglandular density. FINDINGS: There is no evidence of suspicious mass, calcification, or architectural distortion to sugg est malignancy in either breast. There has been no suspicious interval change. IMPRESSION: 1. No mammographic evidence of malignancy. 2. Recommend routine screening mammography in one year. BI-RADS Category 1: Negative Reviewed, dictated and finalized at location B.
== END 2023-09-28 09:41 | disposition home or self-care (01) ==
LOC: ANHIMG 09:41
PROVIDERS: PCP Family Medicine; Visit Provider Family Medicine
DX: Z12.31 Encounter for screening mammogram for malignant neoplasm of breast (principal)
CPT/HCPCS: 77063; 77067

== ENCOUNTER 2023-10-22 08:38 | Day surgery (SDC) | payer MEDICARE, SELFPAY ==
[2023-09-11 15:10] VITALS: BMI 29.0
[2023-10-05 10:20] VITALS: BMI 27.1
--- NOTE | 2023-10-16 12:47 | PM.HPGS ---
History of Present Illness History of Present Illness Consent: Risks, benefits, and alternatives have been discussed and questions answered. Patient agrees to proceed with procedure. Chief complaint: Family History of Colon Cancer Narrative: Lulú Olson is a 78 year old female who is referred for colon cancer screening. She has a family history of colon cancer. Sister has been diagnosed with colon cancer as has her sister's son who is his 40s. Review of Systems Review of Systems: All systems reviewed & are unremarkable except as noted in HPI and below PMFSH Past Medical History Medical History HTN (hypertension) Pes planus of both feet Tonsillectomy planned Traumatic arthritis of right ankle Surgical History Surgical History History of ankle surgery History of breast surgery History of carpal tunnel release Family History Family History Other Diabetes mellitus Family history of alcoholism Family history of arthritis Family history of cardiovascular disease Family history of gout Family history of kidney disease Hypertension Social History Social History Smoking status: Never smoker Additional smoking assessment comments: DENIES ANY FORM OF TOBACCO USE Alcohol intake: never Substance use: never Substance use type: does not use Lack of Transportation: No Lack of Food: Never True Current Housing: I Have Housing Concerned About Future Housing: No Difficulty Paying Gas/Electric Bills: No Difficulty Paying for Meds: No Currently Unemployed: No Education: Don't Know Difficulty w/ Childcare or Family Care: No Living arrangements: alone Occupation/Education: retired Gender identity (if verbalized by the patient): Female Spiritual care concerns: No Meds Home Medications and Allergies Home Medications Medication Instructions Recorded Confirmed Type multivitamin 1 tablet PO DAILY 12/10/19 10/22/23 History cholecalciferol (vitamin D3) 125 125 mcg PO DAILY 03/02/22 10/22/23 History mcg (5,000 unit) tablet milk thistle 200 mg capsule 200 mg PO DAILY 03/02/22 10/22/23 History pyridoxine (vitamin B6) 50 mg 50 mg PO DAILY 03/02/22 10/22/23 History tablet naproxen 500 mg tablet,delayed 500 mg PO BID 09/07/23 10/22/23 History release triamterene 37.5 1 cap PO DAILY 10/05/23 10/22/23 History mg-hydrochlorothiazide 25 mg capsule Allergies Allergy/AdvReac Type Severity Reaction Status Date / Time No Known Allergies Allergy Verified 10/22/23 09:31 Exam Resp: Auscultation: clear to auscultation bilaterally Cardio: Rate: regular rate Rhythm: regular rhythm GI: GI Palp: Yes Soft to palpation and No Tenderness to palpation present (GI) Assessment and Plan Assessment and plan (1) Family history of colon cancer: Code(s): Z80.0 - Family history of malignant neoplasm of digestive organs Status: Acute Assessment and Plan: Colonoscopy with possible biopsy or polypectomy or cautery or injection of substances.
[2023-10-22 09:30] VITALS: BP 150/72; PULSE 64; RESP 18; TEMP 36.7; O2SAT 100
[2023-10-22] MEDS: LACTATED RINGERS 1,000 ML 150 ML IV CONT (09:46)
--- NOTE | 2023-10-22 10:21 | WPDANESEPPF ---
Anes - Initial Pre Proc Eval Procedure: Operation Date: 10/22/23 10:30 Proposed Procedures p Diagnostic Colonoscopy - Juan Ruiz MD Date/Time: 10/22/23 10:21 Surgeon: Juan Ruiz MD Pre Op Diagnosis: Family History of Colon Cancer Patient Data Age: 78 Gender: F Height: 1.55 m Weight: 65.3 kg Last Vital Signs Temp 36.7 C 10/22/23 09:30 Pulse 64 10/22/23 09:30 Resp 18 10/22/23 09:30 BP 150/72 H 10/22/23 09:30 Pulse Ox 100 10/22/23 09:30 O2 Del Method Room Air 10/22/23 09:30 Allergies Allergy/AdvReac Type Severity Reaction Status Date / Time No Known Allergies Allergy Verified 10/22/23 09:31 Home Medications Medication Instructions Recorded Confirmed Type multivitamin 1 tablet PO DAILY 12/10/19 10/22/23 History cholecalciferol (vitamin D3) 125 125 mcg PO DAILY 03/02/22 10/22/23 History mcg (5,000 unit) tablet milk thistle 200 mg capsule 200 mg PO DAILY 03/02/22 10/22/23 History pyridoxine (vitamin B6) 50 mg 50 mg PO DAILY 03/02/22 10/22/23 History tablet naproxen 500 mg tablet,delayed 500 mg PO BID 09/07/23 10/22/23 History release triamterene 37.5 1 cap PO DAILY 10/05/23 10/22/23 History mg-hydrochlorothiazide 25 mg capsule Patient hx anesthesia problems: none Family hx anesthesia problems: none Results Review: All pre-operative results and documents have been reviewed as part of the pre-operative evaluation. [facility] Past Medical History Medical History HTN (hypertension) Pes planus of both feet Tonsillectomy planned Traumatic arthritis of right ankle Surgical History Surgical History History of ankle surgery History of breast surgery History of carpal tunnel release Family History Family History Other Diabetes mellitus Family history of alcoholism Family history of arthritis Family history of cardiovascular disease Family history of gout Family history of kidney disease Hypertension Social History Social History Smoking status: Never smoker Additional smoking assessment comments: DENIES ANY FORM OF TOBACCO USE Alcohol intake: never Substance use: never Substance use type: does not use Lack of Transportation: No Lack of Food: Never True Current Housing: I Have Housing Concerned About Future Housing: No Difficulty Paying Gas/Electric Bills: No Difficulty Paying for Meds: No Currently Unemployed: No Education: Don't Know Difficulty w/ Childcare or Family Care: No Living arrangements: alone Occupation/Education: retired Gender identity (if verbalized by the patient): Female Spiritual care concerns: No Anes - Eval Final PreProcedure Day of Procedure 10/22/23 10:21 Patient weight: overweight Heart: regular rate and rhythm Lungs: clear to auscultation Airway: Mallampati scale class II Neurological: alert and oriented Last oral intake: >/= 8 hours ASA classification: II Emergent: no Anesthetic plan: proceed Anesthesia type and monitoring: general and standard monitoring Results Review: All pre-operative results and documents have been reviewed as part of the pre-operative evaluation. Informed Consent: The patient's anesthetic plan and its attendant risks and benefits were discussed with the patient/family/POA. Questions were solicited and answers provided to the satisfaction of the patient/family/POA.
[2023-10-22 10:45] VITALS: BP 98/46; PULSE 50; RESP 14; O2SAT 100
[2023-10-22 10:55] VITALS: BP 106/54; PULSE 57; RESP 15; O2SAT 100
[2023-10-22 11:05] VITALS: BP 141/77; PULSE 62; RESP 16; O2SAT 100
--- NOTE | 2023-10-22 11:13 | WPDANESPN ---
Anes - Prog Note Post-Op Date/Time: 10/22/23 11:13 Cardiovascular status: normal Respiratory status: normal Airway patency: baseline Mental status: baseline Post-Op hydration status: normal Vital Signs: Last Vital Signs Temp 36.7 C 10/22/23 09:30 Pulse 62 10/22/23 11:05 Resp 16 10/22/23 11:05 BP 141/77 H 10/22/23 11:05 Pulse Ox 100 10/22/23 11:05 O2 Del Method Room Air 10/22/23 11:05 Pain Score (VAS): 0/10 I/O: Intake & Output 10/21/23 10/22/23 10/22/23 23:59 07:59 15:59 Intake Total 300 Balance 300 Patient Feedback: Patient satisfied with anesthetic care.
== END 2023-10-22 11:17 | disposition home or self-care (01) ==
PROVIDERS: PCP Family Medicine; Visit Provider Internal Medicine Gastroenterology
PROC: 0DJD8ZZ Inspection of Lower Intestinal Tract, Via Natural or Artificial Opening Endoscopic (ICD-10-PCS; CPT 45378; principal; 2023-10-22 10:30)
DX: Z80.0 Family history of malignant neoplasm of digestive organs (principal); Z12.11 Encounter for screening for malignant neoplasm of colon; K57.30 Diverticulosis of large intestine without perforation or abscess without bleeding; K64.8 Other hemorrhoids
CPT/HCPCS: 45378

== ENCOUNTER 2024-12-19 08:37 | Outpatient (CLI) | payer MEDICARE, SELFPAY ==
--- NOTE | ~2024-12-19 | MM_ITS ---
EXAMINATION: MM screening luis f BI w richar HISTORY: Screening TECHNIQUE: Craniocaudal and mediolateral oblique 3-D tomosynthesis images were obtained and synthetic 2-D images were generated. CAD analysis was submitted and interpreted. COMPARISON: Comparison to multiple prior studies sequentially, with oldest reviewed study dated , 04/19/2018 BREAST PARENCHYMAL COMPOSITION: There are scattered areas of fibroglandular density. FINDINGS: There is no evidence of suspicious mass, calcification, or architectural distortion to suggest malignancy in either breast. IMPRESSION: 1. No mammographic evidence of malignancy. 2. Recommend routine screening mammography in one year. BI-RADS Category 1: Negative Reviewed, dictated and finalized at location B.
--- OUTSIDE RECORDS SUMMARY | 2024-12-19 08:42 | XMS_ITS | Clinical Summary ---
Author Organization [facility] [address] Address [address] [place] [address] Care Team Providers Care C Web Developer Name Role Phone Lemuel Jenkins MD Primary Care Provider [phone] Allergies No known active allergies Medications naproxen (NAPROSYN) 500 mg tablet 1 tablet (500 mg total) 09/08/2024 Active triamterene-hydr oCHLOROthiazide 37.5-25 mg per capsule Take 1 tablet/caps ule by mouth daily 09/08/2024 Active multivit with minerals/lutein (MULTIVITAMIN 50 PLUS ORAL) daily 12/10/2019 Active cholecalciferol 25 mcg (1,000 unit) tablet Take 1 tablet (1,000 Units total) by mouth daily Active vitamin b complex tablet Take 1 tablet by mouth daily Active Active Problems Problem Noted Date Diagnosed Date Closed fracture of nasal bones 11/05/2024 Assessment & Plan (11/05/2024 1:51 PM CDT): She may have had a nasal fracture. It is hard to tell and really can not decipher the plain x-rays well enough. I do not think that she needs to have any type of intervention and she does not want to pursue that. Nasal dorsum is shifted to the right a little bit but that maybe old. Deviated nasal septum 11/05/2024 Assessment & Plan (11/05/2024 1:51 PM CDT): He simply has deviation of the nasal septum to the left. I do not find any evidence of hematoma. No need for further intervention. Encounters Date Type Department Care Team Description 11/05/2024 1:15 PM CDT Office Visit [facility] [address] [place] [id number] Olaf Carpio MD Closed fracture of nasal bone, initial encounter (Primary Dx); Deviated nasal septum from Last 3 Months Surgical History Surgery Date Site/Laterality Comments TOTAL HIP ARTHROPLASTY ANKLE FRACTURE SURGERY TONSILLECTOMY TUBAL LIGATION CARPAL TUNNEL RELEASE Medical History Medical History Date Comments Fracture of nasal bones Hypertension Ear problems Tinnitus Family History Medical History Relation Name Comments Cancer Brother Cancer Father Diabetes Mother Heart disease Mother Cancer Sister Relation Name Status Comments Brother Father Mother Sister Social History Tobacco Use Types Packs/Day Years Used Date Smoking Tobacco: Never Smokeless Tobacco: Never Tobacco Cessation:Counseling Given: Not Answered Comments Unknown Sex and Gender Information Value Date Recorded Sex Assigned at Not on file Legal Sex Female 7:[employer] AM [employer] Gender Identity Not on file Sexual Orientation Not on file Obstetrics History Last Filed Vital Signs Vital Sign Reading Time Taken Comments Blood Pressure - - Pulse - - Temperature - - Respiratory Rate 17 11/05/2024 1:32 PM CDT Oxygen Saturation - - Inhaled Oxygen Concentration - - Weight 65.8 kg (145 lb) 11/05/2024 1:32 PM CDT Height 152.4 cm (5') 11/05/2024 1:32 PM CDT Body Mass Index 28.32 11/05/2024 1:32 PM CDT Plan of Treatment Health Maintenance Due Date Last Done Comments Depression Screening 1945 Fall Risk Assessment 1945 Osteoporosis Screening-Bone Density Scan 1945 Well Visit 65+ 2009 Covid-19 Vaccine (2023-2 5 season) 2024 12/20/2023, 01/16/2023, 02/28/2022, Additional history exists Influenza Vaccine (#1) 2024 , 11/29/2022, 12/07/2021, Additional history exists DTaP/Tdap/Td Vaccine (3 - Td or Tdap) 12/19/2033 12/20/2023, 03/12/2009 Zoster Vaccine Completed 02/16/2021, 12/02/2020 Pneumococcal vaccine 65+ Completed 023, 11/26/2017, 07/09/2013 Hepatitis B Screening Completed 12/26/2023 Insurance [facility] Care Teams C Web Developer Relationship Specialty Start Date End Date Lemuel Jenkins MD [address] [facility] [address] [facility] [place] [address] PCP - General Family Medicine 11/03/24
--- OUTSIDE RECORDS SUMMARY | 2024-12-19 08:42 | XMS_ITS | Data Portability ---
Author Organization [place] - [facility] [employer], Main Office Address [address] [place] [address] Care Team Providers Care Die Reamer Name Role Phone SANJUANITA CORREA Primary Care Provider SANJUANITA CORREA Referring Provider [phone] Assessment Encounter Date Assessment Date Assessment LastModified by Organization Details LastModified Time 05/29/2022 05/29/2022 HPI: Patient guanako agustin. She is here for Synvisc 1 injection into her knee. Again she has had these in the past. We had prior authorization done. She has moderately severe lateral osteoarthritis. she is not ready to discuss surgical options knee. Physical exam: 76-year-old female alert pleasant. She has obvious valgus alignment to the left knee. It does not correct with varus stress. Tfjw-uq-vpwhhlde effusion in the knee. No redness or warmth. Range of motion is from 7-130 degrees. ChloraPrep was used on the skin Synvisc 1 injection was given into the left knee through 20 gauge needle. Risk of infection and pseudo infection or discuss. 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 I remind her she can repeat the Synvisc 1 injections every 3 months. They she does not get satisfactory improvement from this we can utilize cortisone injections as well we discussed that. She will keep both his mind. She is scheduled to see is back at her 1 year anniversary for total hip. Not available 05/29/2022 14:08:20 04/09/2023 04/09/2023 HPI: Patient guanako agustin. She is 1 year out from left anterior total hip arthroplasty. She is doing very well. Hip is asymptomatic and comfortable. Patient is very happy with her results. Physical exam: Patient is walking very well today. She has no limp. She has no swelling in either lower extremity. Left hip range of motion is full without discomfort. Impression: Patient is 1 year out left anterior total hip arthroplasty. Patient is very happy with her results. Long-term risk of infection was discussed. We will see her in 5 years for routine x-ray surveillance or sooner if she has problems. Not available 04/09/2023 17:46:42 04/20/2023 04/20/2023 Impression: Julisa bruno has at least moderate lateral compartment osteoarthritis the right knee and severe lateral compartment osteoarthritis left. Her preference today was to have Synvisc-One injections in both knees. Synvisc 1 is covered by her particular insurance company as the preferred viscosupplementation injection brand. I have discussed with her that we are not currently caring the Synvisc 1 brand in our office and it is not available to us if she felt she wanted this to be done she would need to see an orthopedic surgeon at a different practice. We do have Monovisc but that is not an approved option by her insurance company. she does require insurance authorization to use the Synvisc-One injections also. I have discussed with her the option of cortisone injection Which could be administered today. I have explained her that if these do not give her satisfactory relief she could have Synvisc 1 injections in 3 months. I have discussed possible side effects including the risk of infection with any injection into the joint whether it be cortisone or Synvisc 1. I have discussed with her that her deformity on the left knee is getting worse and this may developed pronounced instability as her medial collateral ligament continues to attenuate the left knee. Is also possible that the reason her right knee is bothering her more is that she is using the right knee compensate for the left knee but that is only speculation. She wished to try the cortisone shots in both knees today. after Betadine and alcohol prep, 20 mg of Kenalog and 4 cc of 0.5% ropivacaine were injected each knee without difficulty. I am happy to see her back again on an as-needed basis. 30 minutes were spent in total care this patient more than half the time spent in dbeq-dv-[id number] care [email or web address] Not available 04/29/2023 11:21:58 08/03/2023 08/03/2023 Flu shot: , 01/16/2023 COVID vaccines: 04/2020, 05/2020, 11/2020, 09/20/2021, 02/28/2022, 01/16/2023 Tdap: 03/2009, recommended but does not want today Shingles: 2022 per pt at [facility] pneumococcal: PCV 13 (11/27/2017), PPV23 (07/09/2013), PCV20 (2022) Colonoscopy: referral sent Mammogram: 11/2021 clear, scheduled for September 2023 [email or web address] Not available 08/03/2023 09:16:16 Plan of Treatment Reminders Order Date Submit Date Provider Last Modified By Organization Details Last Modified Time Details Appointments None recorded. Lab CBC w/ auto diff 2024 025 [email or web address] [facility], [address], [place], [address], 5 15:15:16 TSH, ultra-sensi tive, serum 2024 025 [facility], [address], [address], [place], [address], 5 08:16:02 HbA1c (hemoglobin A1c), blood 2024 025 [facility], [address], [place], [address], 5 08:16:02 lipid panel, serum 2024 025 [facility], [address], [address], [place], [address], 5 08:16:02 CMP, serum or plasma 2024 025 [facility], [address], [address], [place], [address], 5 08:16:02 glycohemogl obin, total, blood [address]Lab), [address] [place], [address], 4 08:10:26 TSH, serum or plasma [address]Lab), [address] [place], [address], 4 08:10:27 vitamin D, 25-hydroxy, total, serum [address] (Lab), [address] [place], [address], 4 08:10:27 vitamin B12 + folate, serum or blood [address]Lab), [address] [place], [address], 4 08:10:27 lipid panel, serum 2023 024 [facility] (Lab), [address] [place], [address], 4 10:19:41 CBC w/ auto diff [address]Lab), [address] [place], [address], 4 08:10:27 CMP, serum or plasma 2023 024 [facility] (Lab), [address] [place], [address], 4 10:19:41 Referral physical therapist referral - Please call patient to schedule. 2024 025 [email or web address] [facility], [address] , [address], [place], [address], 5 15:18:18 gastroenter ologist referral 2023 024 [email or web address] Panda Kelly MD, [address] [facility] [address], [address], [place], [address], 4 16:13:08 Procedures injection/a spiration joint/bursa (PROC) - in office procedure, administere d by provider 2023 024 [email or web address] In-Office Order, Internal Use Only DO Not Attach Compendium DO Not Attach Compendium, Do Not Delete/merge, 4 09:58:51 knee aspiration/ injection (PROC) 2022 023 [email or web address] In-Office Order, Internal Use Only DO Not Attach Compendium DO Not Attach Compendium, Do Not Delete/merge, 3 13:58:16 Surgeries None recorded. Imaging DEXA - Please call patient to schedule. 2024 025 [email or web address] [facility], [address], [address], [place], [address], 5 15:18:36 XR, knee 2023 024 [email or web address] [facility] [place], [address] [facility] [address], [place], [address], 4 12:16:03 XR, hip + pelvis, unilateral 2023 024 [email or web address] [facility] [place], [address] [facility] [address], [place], [id number], 4 18:01:08 Medication Orders Kenalog 10 mg/mL suspension for injection 2023 024 [facility] [address], [address] , [place], [address], 4 08:48:13 ropivacaine (PF) 5 mg/mL (0.5 %) injection solution 2023 024 [facility] [address], [address], [place], [address], 4 08:48:08 Synvisc-One 48 mg/6 mL intra-artic ular syringe 2022 023 [email or web address] [facility] [address], [address], [place], [address], 17:27:59 Patient TargetsNo targets recorded. Patient InstructionsNo instructions recorded. Reason for Referral Paper Pattern Folder Referral for Screening for malignant neoplasm of colon Referring Physician: Iveth Rangel [facility], Encounter Date: 08/03/2023 Physical Therapist Referral for Pain in right arm Please call patient to schedule. Referring Physician: Iveth Rangel [facility], Encounter Date: 11/13/2024 Results Created Date Observation Date Name Description Value Unit Range Abnormal Flag Note LastModifiedBy Organization Detail LastModifiedTime 05/16/19 23 XR, knee No observ ation record ed. [email or web address] [facility] [place] [address], [place], [address], 05/15/2022 14:18:21 04/09/19 24 XR, hip + pelvi s, unila teral No observ ation record ed. [email or web address] [facility] [place] [address], [place], [address], 04/09/2023 17:45:46 04/20/19 24 XR, knee No observ ation record ed. [email or web address] [facility] [place] [address], [place], [address], 04/29/2023 11:19:46 09/28/19 24 09/28/2023 MAMMO , stefano cobian, bilemilia sotol No observ ation record ed. [address] [facility] [address], [place], [address], 10/02/2023 11:05:41 Result Notes None recorded. Problems Name Problem SNOMED Code Status Onset Date Resolution Date Notes Provider Name and Address Organization Details Recorded Time Low back pain 837240729 Active Not Available [facility] 3 04:48:36 Vitamin D deficienc y 93833692 Active Not Available [facility] 3 04:48:36 Acute pharyngit is 532255049 Completed 08/03/[address], [place], [address] , [facility] 4 08:56:33 Hypertens maikol disorder 95928076 Active Not Available [facility] 3 04:48:36 Hematoma 825077982 Completed 08/03/2023 LAS[address], [address], [place], [address] , [facility] 4 08:56:50 Vertigo 261344785 Completed 08/03/2023 LASHA[address]sp[address], [address], [place], [address] , [facility] 4 08:57:25 Nausea 399240841 Completed 08/03/[address], [place], [address] , [facility] 4 08:57:01 Hyperlipi demia 39526619 Active Not Available [facility] 3 04:48:37 Allergic rhinitis 59717637 Completed 08/03/2023 LASHA[address]spina [address], [address], [place], [address] , [facility] 4 08:56:38 Otitis media 05637441 Active Not Available [facility] 3 04:48:37 Nasal congestio n 81799297 Completed 08/03/2023 LASHAWN [address]spina [address], [address], [place], [address] , [facility] 4 08:56:52 Rhinitis 58688193 Completed 08/03/2023 LASHA[address], [address], [place], [address] , [facility] 4 08:57:19 Posterior rhinorrhe a 50073977 Completed 08/03/2023 LAS[address], [address], [place], [address] , [facility] 4 08:57:14 Ankle pain 204584394 Active 2016 Not Available [facility] 3 04:48:36 Heart murmur 55343434 Active 2016 Not Available [facility] 3 04:48:37 Shoulder joint pain 761285236 Active 2017 Not Available [facility] 3 04:48:36 Blood in urine 57191051 Active 2017 Not Available [facility] 3 04:48:36 Microscop ic hematuria 574667901 Active 2018 Not Available [facility] 3 04:48:35 Diverticu losis of colon 753167385 Active 2018 Not Available [facility] 3 04:48:37 Osteoarth ritis 931580508 Active 2019 Not Available [facility] 3 04:48:36 Screening for malignant neoplasm of breast Active 2020 Not Available [facility] 3 04:48:36 COVID-19 297117250 Completed 202108/03/2023 LASHAWN [address]sp[address], [address], [place], [address] , [facility] 5 11:27:38 Osteoarth ritis of left hip joint 47292130160 9108 Active 2021 Not Available [facility] 3 04:48:36 Pain of bilateral knee joints 78030802554 4104 Active 2023 Paola Cortez, IMMIGRATION PATROL INSPECTOR null, [facility] 4 09:25:03 COVID-19 824161438 Active 2024 LASHAWN [address]sp[address], [address], [place], [address] , [facility] 5 11:27:38 Pain in right arm 852720813 Active 2024 LASHAWN Ospina [address], [address], [place], [address] , [facility] [employer] [facility] [employer] [facility] 5 10:43:04 Postmenop ausal osteopeni a 503356945 Active 2024 LASHAWN [address]spina [address], [address], [place], [address] , [facility] [employer] [facility] 5 10:48:19 Acquired hypothyro idism 477984921 Active 2024 LASHAWN [address]spina [address], [address], [place], [address] , [facility] [employer] [facility] [employer] [facility] 5 16:37:06 Problem Notes None recorded. Procedures Surgical History Date Name Laterality Status Provider Name and Address Organization Details Recorded Time 03/20/19 23 Hip surgery completed Not Available [facility] 05/11/19 04:43:10 07/30/19 22 Most Recent Bone Density completed Not Available [facility] 05/10/2022 04:43:07 07/10/19 14 Colonoscopy completed Not Available [facility] 05/11/19 04:43:10 03/12/19 04 Colonoscopy completed Not Available [facility] 05/11/19 04:43:10 03/12/19 01 Orthopedic Procedure completed Not Available [facility] 05/10/2022 04:43:10 03/12/18 97 FINANCIAL INVESTMENT MANAGER Surgery completed Not Available [facility] 05/11/19 04:43:10 03/12/18 72 ENT Surgery completed Not Available [facility] 05/11/19 04:43:10 Breast Biopsy completed SANGITA Morales [employer] 04/20/2023 09:24:05 Imaging Results None recorded. Procedure Notes None recorded. Medical Equipment None Reported. Allergies No known drug allergies Medications Name Sig Start Date Stop Date Status Note LastModified by Organization Details LastModified Time eq mix-in laxative pow MIX 1 PACKET IN WATER & DRINK IN THE MORNING 05/29 completed Not Available Not Available Not Available eq stl sft st lax 8.6-50mg tab TAKE 2 TABLETS BY MOUTH TWICE DAILY 05/29 completed Not Available Not Available Not Available cyclobenzap rine 10 mg tablet Take 1 tablet 3 times a day by oral route. 05/04 completed Not Available Not Available Not Available amoxicillin 500 mg capsule TAKE 1 CAPSULE BY MOUTH 4 TIMES DAILY UNTIL GONE FOR 7 DAYS 04/09 completed Not Available Not Available Not Available tizanidine 2 mg tablet TAKE 1 TABLET BY MOUTH EVERY 6 HOURS NEEDED FOR 14 DAYS active Not Available Not Available No t Available tizanidine 4 mg tablet Take 1 tablet every 6 hours by oral route as needed. active Not Available Not Available No t Available Coricidin HBP Cough and Cold 4 mg-30 mg tablet Take 1 tablet every 6 hours by oral route as directed for 15 days. active Not Available Not Available No t Available hydrocodone 5 mg-acetamin ophen 325 mg tablet active Not Available Not Available No t Available Claritin 10 mg tablet Take 1 tablet every day by oral route for 30 days. active Not Available Not Available No t Available promethazin e 12.5 mg tablet Take 1 tablet 4 times a day by oral route as needed for 15 days. active Not Available Not Available No t Available Aspir-Low 81 mg tablet,oral yed release Take 1 tablet every day by oral route for 30 days. 03/07 completed Not Available Not Available Not Available triamterene 37.5 mg-hydrochl orothiazide 25 mg capsule TAKE 1 CAPSULE BY MOUTH ONCE DAILY 2024 active Not Available Not Available Not Avai lable amoxicillin 500 mg tablet Take 1 tablet every 12 hours by oral route for 5 days. active Not Available Not Available No t Available levothyroxi ne 25 mcg tablet TAKE 1 TABLET BY MOUTH ONCE DAILY BEFORE MEAL(S) active Not Available Not Available No t Available ciclopirox 8 % topical solution 03/26 completed Not Available Not Available Not Available Nitrostat 0.4 mg sublingual tablet 09/24 completed Not Available Not Available Not Available ciprofloxac in 0.3 % eye drops 09/08 completed Not Available Not Available Not Available Kenalog 10 mg/mL suspension for injection Take 40 mg by injection route. 08/02 completed [facility]: [phone] Not Available Not Available Not Available cephalexin 500 mg capsule TAKE 1 CAPSULE BY MOUTH EVERY 6 HOURS 04/17 completed Not Available Not Available Not Available triamterene 37.5 mg-hydrochl orothiazide 25 mg tablet TAKE ONE TABLET BY MOUTH EVERY DAY active Not Available Not Available No t Available hydrocodone 5 mg-acetamin ophen 500 mg tablet active Not Available Not Available No t Available mupirocin 2 % topical ointment Applied as directed in both nostrils twice daily for 5 days starting 03-15-21 active Not Available Not Available No t Available celecoxib 100 mg capsule TAKE 1 CAPSULE BY MOUTH ONCE DAILY 03/31 completed Not Available Not Available Not Available ketoconazol e 2 % topical cream active Not Available Not Available Not Available fluticasone propionate 50 mcg/actuati on nasal spray,suspe nsion Inhale 2 sprays every day by intranasa l route in the morning for 30 days. active Not Available Not Available No t Available Hibiclens 4 % topical liquid Perform daily total body-wash for 5 days starting 03-15-2203/31 completed Not Available Not Available Not Available naproxen 500 mg tablet TAKE 1 TABLET BY MOUTH TWICE DAILY WITH FOOD NEEDED 2024 active Not Available Not Available Not Avai lable oxycodone 5 mg tablet TAKE 1 TABLET BY MOUTH EVERY 4 HOURS 05/04 completed Not Available Not Available Not Available Pneumovax-2 3 25 mcg/0.5 mL injection syringe ADM 0.5ML IM UTD 09/24 completed Not Available Not Available Not Available Pain Reliever (acetaminop hen) 500 mg tablet TAKE 2 TABLETS BY MOUTH EVERY 6 HOURS 04/09 completed Not Available Not Available Not Available naproxen 04/09 completed Not Available Not Available Not Available Flexeril 05/04 completed Not Available Not Available Not Available Vitamin B6 100 mg 04/09 completed Not Available Not Available Not Available Synvisc-One 48 mg/6 mL intra-artic ular syringe in office 04/09 completed Not Available Not Available Not Available ropivacaine (PF) 5 mg/mL (0.5 %) injection solution Take 30 mg by injection route. 08/02 completed [facility] [phone] Not Available Not Available Not Available Eliquis 2.5 mg tablet TAKE 1 TABLET BY MOUTH EVERY 12 HOURS 05/04 completed Not Available Not Available Not Available Fluzone High-Dose 2013- (PF) 180 mcg/0.5 mL intramuscul ar syringe INJECT 0.5 ML INTRAMUSC ULARLY DIRECTED. 03/26 completed Not Available Not Available Not Available Fluzone High-Dose 2014- (PF) 180 mcg/0.5 mL intramuscul ar syringe ADM 0.5ML IM UTD active Not Available Not Available No t Available Fluzone High-Dose 4256-0808 (PF) 180 mcg/0.5 mL intramuscul ar syringe ADM 0.5ML IM UTD active Not Available Not Available No t Available Fluzone High-Dose [id number] (PF) 180 mcg/0.5 mL intramuscul ar syringe ADM 0.5ML IM UTD 03/26 completed Not Available Not Available Not Available Fluzone High-Dose (PF) 180 mcg/0.5 mL intramuscul ar syringe ADM 0.5ML IM UTD 04/01 completed Not Available Not Available Not Available Fluzone High-Dose Quad 2019- (PF) 240 mcg/0.7 mL IM syringe ADM 0.7ML IM UTD 02/25 completed Not Available Not Available Not Available BinaxNOW COVID-19 Ag Self Test kit Use as Directed on the Package 12/21 completed Not Available Not Available Not Available Paxlovid 300 mg (150 mg x 2)-100 mg tablets in a dose pack Take medicatio n as directed 11/13 completed Not Available Not Available Not Available Vitals Date Recorded Body height Body mass index (BMI) Body weight Provider Name and Address Organization Details Last Updated DateTime 04/09/2023 149.86 cm 30.9 kg/m2 00656.63 g ANTIONE Kelly [place] [employer] [facility] [employer] [facility] 04/09/2023 17:31:06 Date Recorded Body height Body mass index (BMI) Body weight Provider Name and Address Organization Details Last Updated DateTime 04/20/2023 149.86 cm 30 kg/m2 13977.19 g Paola Cortez CNA [place] [employer] [facility] [employer] [facility] 04/20/2023 09:22:18 Date Recorded Body height Provider Name an d Address Organization Details Last Updated DateTime 05/29/2022 149.86 cm Haley Washburn Tia [facility] [employer] [facility] 05/29/2022 13:46:23 Date Recorded Body height Body mass index (BMI) Body weight Body temperature Heart rate Respiratory rate Oxygen saturation Oxygen saturation in Arterial blood by Pulse oximetry Pain severity - 0-10 verbal numeric rating [Score] - Reported Systolic And Diastolic Provider Name and Address Organization Details Last Updated DateTime 4 149.86 cm 30.4 kg/m2 68512.9 6 g 96.7 [degF] 77 /min 20 /min 99 % 99 % 0 140/82 mm[Hg] Sanjuanita Campa RN [facility] [employer] [facility] 4 08:51:52 Date Recorded Body weight Body mass index (BMI) Body height Body temperature Heart rate Respiratory rate Oxygen saturation Oxygen saturation in Arterial blood by Pulse oximetry Pain severity - 0-10 verbal numeric rating [Score] - Reported Systolic And Diastolic Provider Name and Address Organization Details Last Updated DateTime 5 61707.4 3 g 29.7 kg/m2 149.86 cm 97.1 [degF] 90 /min 20 /min 99 % 99 % 8 180/100 mm[Hg] Sanjuanita Campa RN [facility] [employer] [facility] 5 10:33:51 Social History Question Answer Notes LastModified by Organization Details LastModified Time Tobacco Smoking Status Never Smoker Not Available [facility] 05/10/2022 04:11:58 Do You Have An Advance Directive? Yes Patient Stated She Is Currently Working On One. [id number] Information not available 05/10/2022 Are You Blind Or Do You Have Difficulty Seeing? No [email or web address].[id number] Information not available 05/10/2022 What Is Your Level Of Caffeine Consumption? Moderate [id number].[id number] [id number] Information not available 05/10/2022 How Much Tobacco Do You Chew? None [id number] Information not available 05/10/2022 What Is Your Code Status? Full Code [id number] Information not available 05/10/2022 In The 14 Days Before Symptom Onset, Have You Had Close Contact With A Laboratory-confi rmed COVID-19 While That Case Was Ill? No [id number] Information not available 05/10/2022 In The 14 Days Before Symptom Onset, Have You Had Close Contact With A Person Who Is Under Investigation For COVID-19 While That Person Was Ill? No [id number] [id number] Information not available 05/10/2022 Are You Deaf Or Do You Have Serious Difficulty Hearing? No MIGRATION.[id number] [id number] Information not available 05/10/2022 What Type Of Diet Are You Following? REGULAR [id number].0301 [id number] Information not available 05/10/2022 Which Illicit Or Recreational Drugs Have You Used? None [email or web address].[id number] [id number] Information not available 05/10/2022 Have There Been Any Changes To Your Family Or Social Situation? No MIGRATION.0301 [id number] Information not available 05/10/2022 What Is The Fluoride Status Of Your Home? Unknown [email or web address] [id number] Information not available 05/10/2022 Do You Use Insect Repellent Routinely? Yes [id number].[id number] [id number] Information not available 05/10/2022 Where Do You Live? [facility] MIGRATION.[id number] [id number] Information not available 05/10/2022 Do You Have A Medical Power Of Senior Grant Writer? Yes [id number].[id number] [id number] Information not available 05/10/2022 What Was The Date Of Your Most Recent Tobacco Screening? 05/02/2021 [id number] [id number] Information not available 05/10/2022 Do You Have Any Pets? No Information not available 08/03/2023 What Is Your Relationship Status? [id number].[id number] [id number] Information not available 05/10/2022 Do You Have Smoke And Carbon Monoxide Detectors In Your Home? Yes MIGRATION.0301 [id number] Information not available 05/10/2022 Are You Passively Exposed To Smoke? No MIGRATION.0301 [id number] Information not available 05/10/2022 Are There Any Smokers In Your House? No MIGRATION.0301 [id number] Information not available 05/10/2022 Do You Use Sunscreen Routinely? Yes MIGRATION.0301 [id number] Information not available 05/10/2022 Has Tobacco Cessation Counseling Been Provided? No N/A MIGRATION.0301 [id number] Information not available 05/10/2022 Do You Have Difficulty Walking Or Climbing Stairs? No MIGRATION.0301 [id number] Information not available 05/10/2022 Are You Currently In School? No MIGRATION.0301 [id number] Information not available 05/10/2022 Do You Have Any Dietary Restrictions? No MIGRATION.0301 [id number] Information not available 05/10/2022 Sex: Female Functional Status Question Answer Note LastModified by [employer] Communication[employer] ion Details LastModified Time Do you use any illicit or recreational drugs? No MIGRATION.34329 [id number] Information not available 05/10/2022 Do you or have you ever used any other forms of tobacco or nicotine? No MIGRATION.54253 18362 Information not available 05/10/2022 What is your level of alcohol consumption? None [email or web address] Information not available 04/20/2023 Are you currently employed? No Information not available 08/03/2023 Do you have transportation difficulties? No MIGRATION.61832 92155 Information not available 05/10/2022 Are you able to walk independently without assistance or assistive devices? YESWOREST MIGRATION.10826 [id number] Information not available 05/10/2022 Do you have difficulty doing errands alone? No MIGRATION.01556 56822 Information not available 05/10/2022 Are you able to care for yourself independently? Yes MIGRATION.99795 93475 Information not available 05/10/2022 Do you have difficulty dressing, bathing, grooming, or toileting? No MIGRATION.74613 52609 Information not available 05/10/2022 Do you or have you ever used e-cigarettes or vape? Never used electronic cigarettes MIGRATION.32287 84420 Information not available 05/10/2022 What is your exercise level? Moderate walking MIGRATION.33123 84516 Information not available 05/10/2022 Mental Status Question Answer Note LastModified by Organizat ion Details LastModified Time Do you feel stressed (tense, restless, nervous, or anxious, or unable to sleep at night)? [id number] Information not available 11/13/2024 Do you have difficulty concentrating, remembering or making decisions? No MIGRATION.[id number] 26 Information not available 05/10/2022 Family History Relationship Description Onset Age of this Age Resolved Age Notes LastModified by Organization Details LastModified Time Mother Hypertensive disorder DM2 MIGRATION.999 [id number] Not available 05/10/2022 04:43:11 Mother Diabetes mellitus MIGRATION.466 [id number] Not available 05/10/2022 04:43:11 Father Malignant neoplasm of pharynx MIGRATION.908 [id number] Not available 05/10/2022 04:43:11 Father Malignant neoplasm of oral cavity MIGRATION.899 [id number] Not available 05/10/2022 04:43:11 Father Family history of malignant neoplasm MIGRATION.486 [id number] Not available 05/10/2022 04:43:11 Brother Family history of malignant neoplasm MIGRATION.518 [id number] Not available 05/10/2022 04:43:11 Brother Diabetes mellitus MIGRATION.530 [id number] Not available 05/10/2022 04:43:11 Sister Family history of malignant neoplasm MIGRATION.778 [id number] Not available 05/10/2022 04:43:11 Sister Diabetes mellitus MIGRATION.387 [id number] Not available 05/10/2022 04:43:11 Sister Kidney disease MIGRATION.833 [id number] Not available 05/10/2022 04:43:11 Mother Heart disease [email or web address] Not available 2023 09:23:16 Medical History Condition Response BLINDNESS N RHEUMATIC FEVER N BLADDER PROBLEMS N KIDNEY STONES N MRSA N OTHER # 1 N POLIO N LUNG DISEASE/DISORDER N RADIATION / CHEMOTHERAPY N COPD N Other # 2 N BLOOD DISEASES N SURGERY N EAR OR HEARING PROBLEMS N MUMPS N DEPRESSION (INCLUDING POST ) N FEMALE PROBLEMS / INFECTIONS N BOWEL PROBLEMS N STROKE/TIA N THYROID DISEASE N ULCERS N BENIGN PROSTATIC HYPERPLASIA N MEASLES N CERVICALGIA N TB SKIN TEST N MYOCARDIAL INFARCTION N PARAPELGIA N OBESITY N GERD/NAUSEA N ANEURYSM N URINARY/BLADDER/KIDNEY PROBLEMS Y CORONARY ARTERY DISEASE (CAD) N MENIERE'S DISEASE N ADDICTION CONCERNS N ENDOMETRIOSIS N USE OF BLOOD THINNERS N SKIN PROBLEMS N EMPHYSEMA N GASTROINTESTINAL DISORDER N MUSCLE,JOINT OR BONE PROBLEMS N GASTROINTESTINAL BLEEDING N BLOOD CLOTS N ASTHMA N CATARACTS N USE OF NSAIDS Y ERECTILE DYSFUNCTION N GI PROBLEMS N CHF N Low Testosterone N NEUROPATHY N INFERTILITY N AIDS/HIV N FRACTURES N CHEMOTHERAPY / RADIATION N VISION/EYE PROBLEMS N LIVER DISEASE N MALE HYPOGONADISM N HYPERTENSION Y TOURETTE'S N ANXIETY DISORDER Y BLOOD TRANSFUSION N ANEMIA/BLOOD DISORDER N CHRONIC EAR INFECTIONS N BRONCHITIS N TUBERCULOSIS N GLAUCOMA N FOOT PROBLEM N DIVERTICULITIS N CHICKENPOX N SLEEP APNEA N ALLERGIES/HAYFEVER N INFECTIOUS DISEASE N HEART ARRHYTHMIA N PROSTATE N INSOMNIA N HIGH CHOLESTEROL / HYPERLIPIDEMIA N HYPERTHYROIDISM N EYE PROBLEMS N EATING DISORDER N EDEMA N CHRONIC PAIN SYNDROME N CONSTIPATION N CAROTID BLOCKAGE N BACK / NECK PROBLEMS N HAVE YOU BEEN HOSPITALIZED OR SEEN IN [facility] IN THE PAST YEAR ? N ATHEROSCLEROSIS N BREAST PROBLEMS N DIALYSIS N ECZEMA N FIBROMYALGIA N OSTEOPOROSIS Y ARTHRITIS Y NO SIGNIFICANT PAST MEDICAL HISTORY N APPENDICITIS N DIABETES, TYPE N BAD TEETH N HEARTBURN / REFLUX N ADD/ADHD N AUTISM SPECTRUM DISORDER (ASD) N HEPATITIS / LIVER DISEASE N PULMONARY DISEASE N GOUT N SLEEP DISORDER N ALZHEIMER'S DISEASE N PAIN Y HERPES N DEMENTIA N HEADACHES/MIGRAINES N SEIZURES/EPILEPSY N VASCULAR DISEASE N PACEMAKER N DIZZINESS N HEART DISEASE/HEART PROBLEMS N KIDNEY DISEASE N DEVELOPMENTAL OR BEHAVIORAL DISORDERS N MULTIPLE SCLEROSIS N SCARLET FEVER N MENTAL DISORDER/ILLNESS N CARDIAC ARRHYTHMIA N CANCER: SPECIFY N PNEUMONIA N ATRIAL FIBRILLATION N Gall Stones N PULMONARY EMBOLISM N AUTOIMMUNE DISEASE N Gynecological History Statement/Question Response Date of Last Mammogram 09/24/2020 Date of Last Pap Smear Date of Last Colonoscopy Most Recent Mammogram Most Recent Bone Density 07/29/2021 Obstetrics History GPAL:G 0 P 0 0 0 0 Immunizations Vaccine Type Date Status Note Provider Jun e and Address Organization Details Recorded Time COVID-19 Non-[place] Vaccine, UNSPECIFIED 1 completed Not Available [facility] 05/10/2022 04:56:11 SARS-COV-2 (COVID-19) vaccine, UNSPECIFIED 1 completed Not Available [facility] 05/10/2022 04:56:11 SARS-COV-2 (COVID-19) vaccine, UNSPECIFIED 1 completed Not Available [facility] 05/10/2022 04:56:11 Influenza, high-dose, trivalent, PF 6 completed Not Available [facility] 05/10/2022 04:56:12 Influenza, high-dose, trivalent, PF 5 completed Not Available [facility] 05/10/2022 04:56:12 influenza, unspecified formulation 2 completed Not Available [facility] 05/10/2022 04:56:12 Influenza, high-dose, quadrivalent, PF 1 completed Not Available [facility] 05/10/2022 04:56:12 Influenza, high-dose, quadrivalent, PF 0 completed Not Available [facility] 05/10/2022 04:56:12 Influenza, split virus, quadrivalent, preservative 9 completed Not Available [facility] 05/10/2022 04:56:12 Influenza, split virus, quadrivalent, preservative 8 completed Not Available [facility] 05/10/2022 04:56:12 Pneumococcal conjugate PCV 13 8 completed Not Available [facility] 05/10/2022 04:56:12 Influenza, high-dose, trivalent, PF 4 completed Not Available [facility] 05/10/2022 04:56:12 Tdap 0 completed Not Available [facility] 05/10/2022 04:56:12 pneumococcal polysaccharide PPV23 4 completed Not Available [facility] 05/10/2022 04:56:12 Past Encounters Encounter ID Performer Location Encounter Start Date Encounter Closed Date Diagnosis/Indication Diagnosis SNOMED-CT Code Diagnosis ICD10 Code Diagnosis IMO Codes Diagnosis Note [id number] Lemuel Jenkins MD [facility] [place] [address] [place] [address] 08/25/2020 00:00:00 08/25/2020 10:01:45 [id number] MD CARRIE [facility] [place] [address] [place] [address] 01/21/2021 00:00:00 01/21/2021 10:44:51 [id number] Lemuel Jenkins MD [facility] [place] [address] [place] [address] 05/03/2021 00:00:00 05/03/2021 10:57:08 [id number] Sanjuanita Correa NP [facility] [place] [address] [place] [address], [place] [address] 11/18/2021 00:00:00 11/18/2021 11:31:19 [id number] Osmin Whitfield MD [facility] [place] [address] [place] [address] 12/14/2021 00:00:00 12/14/2021 12:10:46 [id number] Osmin Whitfield MD [facility] [place] [address] [place] [address] 12/21/2021 00:00:00 01/01/2022 17:48:39 [id number] Lemuel Jenkins MD [facility] [place] [address] [place] [address], [place] [address] 03/07/2022 00:00:00 03/07/2022 09:33:47 [id number] Osmin Whitfield MD [facility] [place] [address] [place] [address] 03/31/2022 00:00:00 03/31/2022 12:48:39 [id number] Osmin Whitfield MD [facility] [place] [address] [place] [address] 04/17/2022 00:00:00 04/17/2022 15:24:02 [id number] Lemuel Jenkins MD [facility] [place] [address] [place] [address], [place] [address] 05/04/2022 00:00:00 05/04/2022 10:49:02 [id number] Osmin Whitfield MD [facility] [place] [address] [place] [address] 05/15/2022 13:49:50 05/15/2022 14:33:32 History of total replacement of left hip joint [id number] 693675 Z96.642 Pain of le ft knee joint 2329185630 65041 M25.562 [id number] Osmin Whtifield MD [facility] [place] [address] [place] [address] 05/29/2022 13:40:42 05/29/2022 14:35:39 Pain of left knee joint [id number] 42405 M25.321 [id number] Osmin Whitfield MD [facility] [place] [address] [place] [address] 04/09/2023 17:09:12 04/09/2023 18:01:08 History of total replacement of left hip joint 3915324639 066629 Z96.171 [id number] Osmin Whitfield MD [facility] [place] [address] [place] [address] 04/20/2023 09:01:08 04/30/2023 12:16:02 Pain of bilateral knee joints 3816823236 85666 M25.561 M25.307 [id number] Lemuel Jenkins MD [address] [address] 08/03/2023 08:41:41 08/03/2023 09:31:50 Hyperlipidemia 90235579 E78.5 Hypertensive disorder 38 057754 I10 Vitamin D deficiency 347 20120 E55.9 Screening for malignant neoplasm of colon 932690269 Z12.11 [id number] Lemuel Jenkins MD [address] [address] 11/13/2024 10:20:54 11/13/2024 10:58:58 Pain in right arm 947574461 M79.601 [id number] Continue naproxen and tizanidine Will do PTShe is establishe d with Dr Rascon, will reach out to him Postmenopa usal osteopenia 223118665 M85.80 Z78.0 [id number] Last Dexa 2021 Hypertensive disorder 38 949242 I10 Well controlled Elevated BP today related to pain Hyperlipidemia 14272194 E78.5 Will check labs Health Concerns Section Related Observation LastModified by Organization Detai ls LastModified Time None Recorded Concern Status LastModified by Organization Details LastModified Time None Recorded Advance Directives Directive Y: Patient stated she is cur rently working on one. Payers Insurance Date Sequence Insurance Name Policy Number Policy Owen Covered Member ID Owen Member ID Guarantor Name 11/12/2024 1 [facility] (MEDICARE REPLACEMENT/A DVANTAGE - HMO) [id number] Lulú Olson [id number] Lulú Olson Notes Date Note Type Note Provider Name and Address Organization Details Recorded Time 04/20/2023 text/html Patient is a 77-year-old female who presents this time for evaluation of her knees. We last saw her in the office on 05/29/2022 and she had Synvisc 1 injection in her left knee at that time. She has never had a cortisone shot in her knee. For some reason over the last couple of months the right knee has become more painful knee. Her biggest problem has been climbing stairs and she moved her bedroom downstairs to minimize the trip she would have to take going up and downstairs. Standing up from a chair is also painful. X-rays today of both knees show moderate lateral compartment osteoarthritis in the right knee 12 anatomic axis valgus severe lateral compartment osteoarthritis left knee 16.5 anatomic axis valgus which has worsened compared with 1 year ago at which time it was 12.7 anatomic axis valgus. The right knee might show bone touching bone the PA flexion Stork view the lateral compartment. She has been taking naproxen 500 mg 1 tablet daily. She wants to postpone knee replacement surgery as long as possible. She has heard of people having good results but also have heard of people having bad results. She had Synvisc-One injections given into both knees 10 years ago and this helped her for a very long time. Her left leg is now her stronger knee. This is due to the fact that her right knee has become more painful. Left knee does bother her but not as much as the right. Her past history is significant for left total hip arthroplasty March of 2022 which has done well for her. Osmin Whitfield MD [address], [place], [address], [facility] [employer] [facility] 04/29/2023 11:22:26 08/03/2023 text/html Lulú Olson is a 77 year old female here today to transition care. She was previously under the care of Sanjuanita Correa DNP. Her past medical history is significant for hyperlipidemia. This is currently managed by diet and exercise. Her last lipid panel (05/18/2021) cholesterol 205, LDL 118. She has a history of hypertension. BP on arrival is 140/82. She is currently taking triamterene 37.5 - HCTZ 25 PO daily. She declines dizziness, light-headedness, ringing in her ears. She has multi-joint osteoarthritis. She takes naproxen 500 mg PO BID PRN. She sees Dr. Whitfield and plans to have VY knee replacement. She has a history of vitamin D deficiency. She is taking OTC vitamin D3 2,000 u. Flu shot: 12/2021, 01/16/2023OVID vaccines: 04/2020, 05/2020, 11/2020, 09/20/2021, 02/28/2022, 01/16/2023Tdap: 03/2009, recommended but does not want todayShingles: [facility]: [facility] 13 (11/27/2017), PPV23 (07/09/2013), PCV20 (2022)Colonoscopy: referral sentMammogram: 11/2021 clear, scheduled for September 2023 LASHAWN Ospina [address], [place], [address], [facility] [employer] 08/03/2023 09:29:49 11/13/2024 text/html Lulú Olson is an 79 year old female patient here today for an annual wellness She notes that she fell two weeks ago on the right arm. She did not initially have pain but pain began approx 1 week ago and is worsening daily. She notes the pain is worse at night and has been keeping her awake.She describes the pain as a pulling and ache along the posterior upper arm.She has full ROM in the shoulderDeclines neck painShe was given naproxen and tizanidine at and has found this effective. She has been utilizing ice and heat History of hypertension. This is well controlled. Patient does check BP readings at home. These average 120s/80s.BP on arrival today is 170/90. Notes she is in a lot of pain today.Patient declines headaches, tinnitus, light headedness, fatigue. Flu shot: will do this fallMammogram: olonoscopy: 10/22/23DEXA ordered LASHAWN Ospina [address] [facility] [facility] [address], [place], [address], [facility] 11/13/2024 11:11:43 OBGyn Episode No OBEpisode recorded.
--- OUTSIDE RECORDS SUMMARY | 2024-12-19 08:42 | XMS_ITS | Clinical Summary ---
Author Organization [facility] Address On license of [facility] [place] [address] Care Team Providers Care Senior Sales Director Name Role Phone Unavailable Primary Care Provider Unavailabl e Social History Tobacco Use Types Packs/Day Years Used Date Smoking Tobacco: Never Assessed Comments Unknown Sex and Gender Information Value Date Recorded Sex Assigned at Not on file Legal Sex Female 4:55 PM CDT Gender Identity Not on file Sexual Orientation Not on file Plan of Treatment Health Maintenance Due Date Last Done Comments DTaP, Tdap and Td Vaccines ( 1 - Tdap) 08/31/1964 Pneumococcal Vaccine: 50+ Ye ars (1 of 1 - PCV) 1994 Zoster Vaccines (1 of 2) 1994 Dexa Scan (General) 2009 RSV Immunization or 60+ Years (1 - 1-dose 75+ series) 08/31/2019 COVID-19 Vaccine (2023-2 5 season) 2024 Influenza Adult (#1) 2024 Meningococcal B Vaccine Aged Out No l onger eligible based on patient's age to complete this topic Meningococcal Vaccine Aged Out No karson dhara eligible based on patient's age to complete this topic RSV Immunizations Under 20 Months Aged Out No longer eligible based on patient's age to complete this topic
== END 2024-12-19 08:38 | disposition home or self-care (01) ==
LOC: ANHFOHIMG 08:38
PROVIDERS: PCP Family Medicine
DX: Z12.31 Encounter for screening mammogram for malignant neoplasm of breast (principal)
CPT/HCPCS: 77063; 77067

== ENCOUNTER 2025-01-23 09:11 | Outpatient (CLI) | payer MEDICARE, SELFPAY ==
--- NOTE | ~2025-01-23 | DEXA_ITS ---
Bone Density Report Name: ACOSTA HOSKINS Age: 79 Sex: Female Ethnicity: White Date of : 1945 Indication: osteopenia; height loss; prior fracture; hysterectomy; Referring Provider: RAMONA, AMY Sanchez Study: Bone densitometry was performed. Exam Date: January 23, 2025 Accession number: [id number] Bone Density: Region BMD T-score Z-score Classification AP Spine(L1-L4) 1.075 0.3 3.0 Normal Femoral Neck (Right) 0.667 -1.6 0.7 Osteopenia Total Hip (Right) 0.741 -1.6 0.4 Osteopenia World Health Organization criteria for BMD impression classify patients as: Normal (T-score at or above -1.0), Osteopenia (T-score between -1.0 and -2.5), or Osteoporosis (T-score at or below -2.5). 10-year Fracture Risk(1): Major Osteoporotic Fracture 20% Hip Fracture 4.5% Reported Risk Factors: [place] (), Neck BMD=0.667, BMI=28.6, previous fracture (1) FRAX(R) Version 3.08. Fracture probability calculated for an untreated patient. Fracture probability may be lower if the patient has received treatment. Previous Exams: -- Region Exam Age BMD T-score BMD Change BMD Change Date g/cm2 vs Baseline vs Previous -- Total Hip(Right) 01/23/2025 79 0.741 -1.6 -5.9%* -5.9%* 07/29/2021 75 0.787 -1.3 -- *Denotes significance at 95% confidence level, LSC for Total Hip = 0.027 g/cm2 Clinical Information Provided by Patient: Has had a low trauma fracture Has used the following medications: Vitamin D, Calcium Has the following medical conditions: Hysterectomy Patient maximum height was 62 Menopause Age: 49 Drinks caffeinated beverages Onset of menses at age 11 Number of children 2 Impression: The patient has low bone mass, based on the Right Total Hip T-score. The patient has an estimated ten-year risk of hip fracture of 4.5% and an estimated ten-year risk of major fracture of 20%, based on the WHO FRAX algorithm. The patient has risk factors, including: previous fracture. The BMD for the Total Hip(Right) decreased, changing by -5.9% since the last DXA exam. Discussion: BONE DENSITY IS LOW AT ONE OR MORE SKELETAL SITES. THE PATIENT'S BMD AND CLINICAL RISK FACTORS CONTRIBUTE TO THIS PATIENT'S HIGH RISK OF FRACTURE. This patient's lowest T-score is low at one or more skeletal sites. It meets the World Health Organization's (WHO) criteria for ?low bone mass? (T-score between -1.0 and -2.5). The patient's 10-year risk of hip fracture and 10 year risk of a major osteoporotic fracture as calculated by FRAX exceeds the threshold where pharmacological therapy is recommended by the National Osteoporosis Foundation (NOF). However, all treatment decisions require clinical judgment and consideration of individual patient factors, including patient preferences, comorbidities, previous drug use, risk factors not captured in the FRAX model (e.g., frailty, falls, vitamin D deficiency, increased bone turnover, interval significant decline in bone density) and possible under or overestimation of fracture risk by FRAX. The patient should follow a healthful lifestyle (good nutrition with adequate calcium and vitamin D, and appropriate weight-bearing exercise). Follow-Up: Consider a repeat BMD and Vertebral Fracture Assessment (VFA) exam in 2 years or sooner if medically necessary, to reassess this patient's status. Reported by: NICOLE on 01/23/2025 9:45:00 AM. Reviewed, dictated and finalized at location A.
== END 2025-01-23 09:12 | disposition home or self-care (01) ==
LOC: MICIMG 09:11
PROVIDERS: PCP Family Medicine
DX: M85.89 Other specified disorders of bone density and structure, multiple sites (principal); Z78.0 Asymptomatic menopausal state
CPT/HCPCS: 77080